=== PATIENT | female | born 1960 | race Caucasian/White ===

== ENCOUNTER 2021-03-26 03:07 | Emergency (ER) | payer SELFPAY ==
[2021-03-26 03:07] VITALS: RESP 18; TEMP 36.6; BMI 18.8
--- NOTE | 2021-03-26 03:39 | XRR_ITS ---
PROCEDURE INFORMATION: Exam: XR Right Elbow Exam date and time: 03/26/2021 3:39 AM Age: 61 years old Clinical indication: Injury or trauma; Fall; Blunt trauma (contusions or hematomas); Elbow; Right; Additional info: Fall injury TECHNIQUE: Imaging protocol: XR Right elbow. Views: 3 or more views. Total images: 3 COMPARISON: No relevant prior studies available. FINDINGS: Bones/joints: Large joint effusion. Minimal irregularity of the lateral aspect of the radial head felt to represent nondisplaced fracture. This is seen on AP view only. No additional fracture, subluxation, or dislocation detected. Soft tissues: Normal. XR/XR elbow RT min 3V* [id number] IMPRESSION: 1. Large joint effusion. 2. Minimal irregularity of the lateral aspect of the radial head felt to represent nondisplaced fracture. This is seen on AP view only. Radiation Dose CTDIVOL = (mGy): DLP = (mGy-cm)
[2021-03-26 03:57] VITALS: RESP 20; O2SAT 98
[2021-03-26] MEDS: oxyCODONE-APAP 5-325 mg Tablet 2 TAB PO (03:57)
[2021-03-26 04:11] VITALS: BP 141/82; PULSE 88; RESP 22; O2SAT 98
--- NOTE | 2021-03-26 05:28 | ED_ITS ---
HPI - Extremity Problem General: Chief complaint: Extremity Injury, Upper Stated complaint: fall, R arm pain Time Seen by Provider: 03/26/21 03:12 History of Present Illness: HPI Narrative: 61-year-old lady who fell a couple of days ago. She states that she does not see well in the dark, and was walking and fell from the ground level. She struck her right elbow. She has had pain and swelling since that time. Pain worsens with any movement. MD Complaint: extremity pain and extremity swelling Onset (ago): day(s) Pain Consistency: constant Location: right and upper extremity Quality: burning, aching and constant Radiation: none Relieving factors: immobilization Exacerbating factors: range of motion Associated symptoms: Deny chest pain, fever(s), rash or short of breath Review of Systems Const: Denies: fever(s) Card: Denies: chest pain Resp: Denies: dyspnea Skin/Breast: Denies: rash Physical Exam Const: COMMON NORMALS: patient oriented x3 and alert GENERAL APPEARANCE: cooperative Chest: COMMONS NORMALS: normal inspection of the chest Resp: COMMON NORMALS: normal respiratory effort, No use of accessory muscles and clear to auscultation bilaterally AUSCULTATION: clear to auscultation bilaterally Cardio: COMMON NORMALS: regular rate and regular rhythm RATE: regular rate RHYTHM: regular rhythm Extremity: NARRATIVE EXTREMITY EXAM: Exam of the right upper extremity reveals range of motion at the elbow limited by pain. There is swelling noted. There is tenderness, most significantly over the olecranon and radial head. Neuro: COMMON NORMALS: patient oriented x3 SENSORIUM/ORIENTATION: Yes alert Course Vital Signs: Vital signs: Vital Signs Temperature 98 F 03/26/21 03:07 Pulse Rate 88 03/26/21 04:11 Respiratory Rate 22 H 03/26/21 04:11 Blood Pressure 141/82 03/26/21 04:11 Pulse Oximetry 98 03/26/21 04:11 Discharge Plan Discharge Patient Disposition: Home Clinical Impression: Closed fracture of radial head Qualifiers: Encounter type: initial encounter Fracture alignment: nondisplaced Laterality: right Qualified Code(s): S52.124A - Nondisplaced fracture of head of right radius, initial encounter for closed fracture Condition: Stable Prescriptions: New hydrocodone-acetaminophen 5-325 mg tablet 1 tab PO Q8H PRN (Reason: pain) Qty: 12 RF: 0 Discharge Orders: Discharge ED (Routine); Ordered 03/26/21 Ordered By: Jovanni Arthur Referrals: Mihai Jason DO [Physician] - 4-7 days Discharge Diet: Usual diet Discharge Activity: Limit activity as instructed Patient Instructions: Elbow Fracture (ED), Opioid Safety Activity Restrictions/Additional Instructions: Call for an orthopedic clinic appointment on Saturday morning for that coming week. Sling your elbow until seen by orthopedics, but no longer than 1 week. Come out of the sling frequently for gentle range of motion of your elbow. Ice will help with pain. Use pain medication for severe pain. Coding Level of Care Code ED [employer] for Dea Choudhary
== END 2021-03-26 04:10 | disposition home or self-care (01) ==
PROVIDERS: Emergency Provider Emergency Medicine
DX: S52.124A Nondisplaced fracture of head of right radius, initial encounter for closed fracture (principal); W19.XXXA Unspecified fall, initial encounter
CPT/HCPCS: 73080; 99283

== ENCOUNTER 2021-04-04 16:05 | Emergency (ER) | payer SELFPAY ==
[2021-04-04 16:23] VITALS: BP 159/74; PULSE 112; RESP 18; TEMP 36.4; O2SAT 99; BMI 18.8
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
[2021-04-04 17:20] LABS: Add Urine Microscopic? NO; Charge for UA Resulting for Rev
[2021-04-04 17:40] LABS: Bilirubin Urine Neg (Negative); Blood Urine Neg (Negative); Glucose Urine UA Norm (Normal); Ketones Urine 2+ (Negative); Leukocyte Esterase Urine Negative (Negative); Nitrate Urine Negative (Negative); Protein Urine Neg (Negative); Specific Gravity, Urine 1.025 (1.005-1.030); Urine Appearance Clear (CLEAR); Urine Color Yellow (Yellow); Urobilinogen Urine Norm (Negative); pH Urine 5 (5-7)
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
[2021-04-04] MEDS: morphine 4 mg/mL SDV 1 mL IVP ×2 (19:55→23:14)
[2021-04-04] MEDS: ondansetron 2 mg/ML SDV 2 mL 4 MG IVP (19:55)
[2021-04-04 20:41] LABS: Basophils # 0.1 10^3/uL (0.0-0.1); Basophils % 0.6 %; Eosinophils % 0.1 %; Hematocrit 33.9 % (37.0-47.0); Hemoglobin 11.9 g/dL (11.5-15.3); Lymphocytes # 1.4 10^3/uL (0.8-4.8); Lymphocytes % 16.1 %; Mean Corpuscular HGB Conc 35.1 g/dL (30.0-36.0); Mean Corpuscular Hemoglobin 31.9 pg (28.0-34.0); Mean Corpuscular Volume 90.9 fl (81-99); Mean Platelet Volume 9.6 fL (7.4-10.4); Monocytes # 0.5 10^3/uL (0.2-0.9); Monocytes % 5.7 %; Neutrophils # 6.91 10^3/uL (1.8-7.7); Neutrophils % 77.1 %; Nucleated Red Blood Cells % 0 %; Platelet Count 217 10^3/cmm (130-400); Red Blood Count 3.73 10^6/uL (4.1-5.3); Red Cell Distribution Width 14.5 % (12.1-15.1)
[2021-04-04 21:02] LABS: Alanine Aminotransferase 31 U/L (0-33); Albumin Level 4.9 g/dL (3.5-5.2); Alkaline Phosphatase 68 IU/L (35-105); Anion Gap 29.8 (5-19); Aspartate Amino Transferase 59 U/L (0-32); Blood Urea Nitrogen 18 mg/dL (8-23); Calcium 9.1 mg/dL (8.5-10.5); Carbon Dioxide 17 mmol/L (22-29); Chloride 89 mmol/L (98-107); Globulin 3.7 g/dL (1.3-4.6); Glomerular Filtration Rate 84.8 mL/min (90-130); Glucose 111 mg/dL (65-115); Lipase 18 U/L (13-60); Osmolality Calculated 277 mOsm/kg (285-295); Potassium 3.8 mmol/L (3.5-5.1); Sodium 132 mmol/L (136-145); Total Bilirubin 0.5 mg/dL (0.15-1.2); Total Protein 8.6 g/dL (6.6-8.7)
[2021-04-04 21:03] LABS: Lactic Sepsis W/Reflex 3.1 mmol/L (0.5-2.2)
[2021-04-04] MEDS: iohexol 300 mg/mL 100 mL Btl IV (21:09)
[2021-04-04] MEDS: sodium chloride 0.9% 1,000 ML 999 ML IV ×2 (21:23)
[2021-04-04 22:22] LABS: Reflex Lactate Order REFLEX LACTIC ORDERD
[2021-04-04 23:14] VITALS: RESP 24
[2021-04-04 23:19] VITALS: PULSE 109; RESP 24; O2SAT 98
[2021-04-04 23:46] LABS: Lactate (Lactic Acid level) 2.5 mmol/L (0.5-2.2)
[2021-04-04 23:47] LABS: Anion Gap 19.9 (5-19); Blood Urea Nitrogen 15 mg/dL (8-23); Calcium 7.6 mg/dL (8.5-10.5); Carbon Dioxide 19 mmol/L (22-29); Chloride 101 mmol/L (98-107); Glucose 112 mg/dL (65-115); Osmolality Calculated 284 mOsm/kg (285-295); Potassium 3.9 mmol/L (3.5-5.1); Sodium 136 mmol/L (136-145)
[2021-04-05 00:08] VITALS: PULSE 82; RESP 18; O2SAT 98
--- NOTE | 2021-04-06 11:40 | DCPLANNER ---
dependency case manager had message to schedule a follow up appointment for patient with general surgery. dependency case manager emailed patients information to Suly at [facility] General Surgery / ENT clinic. Patients information will be printed and reviewed. Clinic will call patient with appointment information.
--- NOTE | 2021-04-18 16:10 | DCPLANNER ---
manager in training tried to call patient to confirm if they wanted to be seen in the area due to [place] in another state. manager in training was unable to reach patient at this time, and unable to leave a voicemail. General Surgery was unable to reach patient, a letter was sent to patient asking patient to call to schedule a follow up appointment if needed.
== END 2021-04-05 00:09 | disposition home or self-care (01) ==
PROVIDERS: Physician Assistant; Emergency Provider Emergency Medicine
DX: R10.84 Generalized abdominal pain (principal)
CPT/HCPCS: 36415; 74177; 80048; 80053; 81003; 83605; 83690; 85025; 96361; 96374; 96375; 96376; 99284; J2270; J2405; J7030; Q9967

== ENCOUNTER 2021-05-17 20:45 | Emergency (ER) | payer SELFPAY ==
[2021-05-17 20:46] VITALS: BP 150/103; PULSE 90; RESP 20; TEMP 36.6; O2SAT 100; BMI 17.2
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
--- NOTE | 2021-05-17 20:46 | XRR_ITS ---
PROCEDURE INFORMATION: Exam: XR Chest Exam date and time: 05/17/2021 8:46 PM Age: 61 years old Clinical indication: Pain; Angina pectoris; Additional info: Cp TECHNIQUE: Imaging protocol: XR of the chest. Views: 1 view. COMPARISON: CT abdomen pelvis w con* [id number] 04/04/2021 9:06 PM FINDINGS: Lungs: Unremarkable. No consolidation. Pleural spaces: Unremarkable. No pleural effusion. No pneumothorax. Heart/Mediastinum: Unremarkable. No cardiomegaly. Bones/joints: Unremarkable. XR/XR chest 1V portable [id number] IMPRESSION: No acute findings.
--- NOTE | 2021-05-17 20:49 | ECG_ITS ---
[facility] Test Date: 2021-05-17 Pat Name: Christianne Woodson Department: Room: Gender: Female Agronomy Manager: : 1960 Requested By: Sammy Lucas Order Number: [id number] MD: Rhianna Erwin M.D. Measurements Intervals [place] Rate: 83 P: 68 NH: 157 QRS: 52 QRSD: 81 T: 65 QT: 391 QTc: 460 Interpretive Statements SINUS RHYTHM No previous ECG available for comparison Electronically Signed On 05-18-2021 0:04:23 CERAMIC CAPACITOR PROCESSOR by Rhianna Erwin M.D. [id number]
--- NOTE | 2021-05-17 20:51 | ED_ITS ---
HPI - Abdominal Pain General: Chief Complaint: Abdominal Pain Stated Complaint: ABD SWELLING DISCOMFORT Time Seen by Provider: 05/17/21 20:45 Source: patient Mode of arrival: ambulatory Limitations: no limitations History of Present Illness: 61-year-old female with a history hepatitis C states she been having abdominal swelling and pain over the last 2 days states she also been having a sharp chest pain that radiates from her abdomen. States she does not have a primary care doctor here she does not know if she has had ascites before but states she has never had a paracentesis. States pain neymar oquendo is a 6 out of 10 denies any fever denies any vomiting denies any diarrhea she is resting comfortably. [facility] ED PFSH: Medical History (Updated 05/17/21 @ 23:07 by Sammy Lucas MD) Hepatitis C Family History (Updated 05/17/21 @ 20:53 by Sammy Lucas MD) Denies family history of CAD (coronary artery disease) Physical Exam Const: COMMON NORMALS: no acute distress, patient oriented x3 and healthy appearing HENMT: COMMON NORMALS: normocephalic and atraumatic HEAD & SCALP: normocephalic and atraumatic Eye: COMMON NORMALS: Equal, round and reactive pupils present and EOMs intact bilaterally PUPIL: Yes Equal, round and reactive pupils present Neck/C-Spine: COMMON NORMALS: full ROM and supple Chest: COMMONS NORMALS: normal inspection of the chest and normal palpation of entire chest wall Resp: COMMON NORMALS: normal respiratory effort, No retractions, No use of accessory muscles and clear to auscultation bilaterally AUSCULTATION: clear to auscultation bilaterally Cardio: COMMON NORMALS: regular rate, regular rhythm and No murmurs present (Cardio) RATE: regular rate RHYTHM: regular rhythm GI: COMMON NORMALS: Normal to inspection, nondistended, normoactive bowel sounds present, Soft to palpation, non-tender and no masses PALPATION: Yes Soft to palpation and Yes Tenderness to palpation present (GI) (diffuse) Extremity: COMMON NORMALS: normal to inspection and full ROM Neuro: COMMON NORMALS: patient oriented x3, moves all extremities and no focal motor deficits Psych: COMMON NORMALS: mental status grossly normal, Normal thought process present and cooperative THOUGHT PROCESS: Normal thought process present Skin: COMMON NORMALS: no rashes or lesions noted and no wounds GENERAL SKIN EXAM: no rashes or lesions noted Course Vital Signs: Vital signs: Vital Signs Temperature 97.8 F 05/17/21 20:46 Pulse Rate 82 05/17/21 22:13 Respiratory Rate 20 H 05/17/21 20:46 Blood Pressure 166/88 05/17/21 22:13 Pulse Oximetry 100 05/17/21 22:13 MDM - Abdominal Pain Medical Decision Making Patient presents here with abdominal pain likely from hepatitis C she well- appearing here blood works normal abdominal CT is normal EKG is troponins are normal as well she feels improved here she is stable for discharge regular follow-up with a PCP she is return if worsening. Lab Data : 05/17/21 20:31 05/17/21 20:31 Labs/Radiology: Radiology Impressions Abdomen/Pelvis CT 05/17/21 20:46 IMPRESSION: 1. Prominent nondilated loops of small bowel suggestive of an enteritis. 2. Diverticulosis without diverticulitis. 3. Emphysematous changes. 4. Left lower lobe atelectasis. 5. Surgical clips seen about the stomach. Chest X-Ray 05/17/21 20:46 IMPRESSION: No acute findings. Laboratory Results WBC 7.3 10^3/uL (4.0-10.0) 05/17/21 20:31 RBC 3.50 10^6/uL (4.1-5.3) L 05/17/21 20:31 Hgb 11.3 g/dL (11.5-15.3) L 05/17/21 20:31 Hct 34.5 % (37.0-47.0) L 05/17/21 20:31 MCV 98.6 fl (81-99) 05/17/21 20:31 MCH 32.3 pg (28.0-34.0) 05/17/21 20:31 MCHC 32.8 g/dL (30.0-36.0) 05/17/21 20:31 RDW 13.3 % (12.1-15.1) 05/17/21 20:31 Plt Count 239 10^3/cmm (130-400) 05/17/21 20:31 MPV 9.4 fL (7.4-10.4) 05/17/21 20: Neut % (Auto) 56.7 % 05/17/21 20:31 Lymph % (Auto) 27.8 % 05/17/21 20: [place] % (Auto) 9.9 % 05/17/21 20: Eos % (Auto) 4.3 % 05/17/21 20: Baso % (Auto) 1.0 % 05/17/21 20: Neut # (Auto) 4.14 10^3/uL (1.8-7.7) 05/17/21: Lymph # (Auto) 2.0 10^3/uL (0.8-4.8) 05/17/21: [place] # (Auto) 0.7 10^3/uL (0.2-0.9) 05/17/21: Eos # (Auto) 0.3 10^3/uL (0.0-0.8) 05/17/21: Baso # (Auto) 0.1 10^3/uL (0.0-0.1) 05/17/21 20: Nucleated RBC % (auto) 0 % 05/17/21: Nucleated RBCs # 0.0 /100WBC 05/17/21 20: Sodium 130 mmol/L (136-145) L 05/17/21 20: Potassium 4.3 mmol/L (3.5-5.1) 05/17/21 20: Chloride 96 mmol/L (98-107) L 05/17/21 20: Carbon Dioxide 23 mmol/L (22-29) 05/17/21 20: Anion Gap 15.3 (5-19) 05/17/21 20: BUN 9 mg/dL (8-23) 05/17/21 20: Creatinine 0.6 mg/dL (0.5-0.9) 05/17/21 20: GFR Calculation 101.3 mL/min (90-130) 05/17/21: Glucose 84 mg/dL (65-115) 05/17/21 20: Calculated Osmolality 268 mOsm/kg (285-295) L 05/17/21: Calcium 8.9 mg/dL (8.5-10.5) 05/17/21: Total Bilirubin 0.2 mg/dL (0.15-1.2) 01/26/22 20:31 AST 34 U/L (0-32) H 05/17/21 20:31 ALT 34 U/L (0-33) H 05/17/21 20:31 Alkaline Phosphatase 71 IU/L (35-105) 05/17/21 20:31 Troponin T Baseline 13 ng/L (0-10) H 05/17/21 20:31 Troponin T 120 Minute 14.01 ng/L (0-10) H 05/17/21 22:29 Delta Troponin T 1.01 ABS# (0-10) 05/17/21 22:29 Total Protein 7.0 g/dL (6.6-8.7) 05/17/21 20:31 Albumin 4.4 g/dL (3.5-5.2) 05/17/21 20:31 Globulin 2.6 g/dL (1.3-4.6) 05/17/21 20:31 Lipase 38 U/L (13-60) 05/17/21 20:[address] Abd/Pel: Radiologist's impression: IMPRESSION: 1. Prominent nondilated loops of small bowel suggestive of an enteritis. 2. Diverticulosis without diverticulitis. 3. Emphysematous changes. 4. Left lower lobe atelectasis. 5. Surgical clips seen about the stomach. Discharge Plan Discharge Patient Disposition: Home Clinical Impression: Abdominal pain, Chest pain Condition: Stable Prescriptions: No Action hydrocodone-acetaminophen 5-325 mg tablet 1 tab PO Q8H PRN (Reason: pain) Qty: 12 0RF Discharge Orders: Discharge ED (Routine); Ordered 05/17/21 Ordered By: Sammy Lucas Discharge Diet: Advance as tolerated Discharge Activity: Resume usual activity Patient Instructions: Abdominal Pain (ED) Coding Level of Care Code ED Dean Of Admissions for Vikramg Fwd Exam Comprehensive
[2021-05-17 21:00] LABS: Basophils # 0.1 10^3/uL (0.0-0.1); Eosinophils # 0.3 10^3/uL (0.0-0.8); Eosinophils % 4.3 %; Hematocrit 34.5 % (37.0-47.0); Hemoglobin 11.3 g/dL (11.5-15.3); Lymphocytes % 27.8 %; Mean Corpuscular HGB Conc 32.8 g/dL (30.0-36.0); Mean Corpuscular Hemoglobin 32.3 pg (28.0-34.0); Mean Corpuscular Volume 98.6 fl (81-99); Mean Platelet Volume 9.4 fL (7.4-10.4); Monocytes # 0.7 10^3/uL (0.2-0.9); Monocytes % 9.9 %; Neutrophils # 4.14 10^3/uL (1.8-7.7); Neutrophils % 56.7 %; Nucleated Red Blood Cells % 0 %; Platelet Count 239 10^3/cmm (130-400); Red Cell Distribution Width 13.3 % (12.1-15.1); White Blood Count 7.3 10^3/uL (4.0-10.0)
[2021-05-17] MEDS: morphine 4 mg/mL SDV 1 mL IVP (21:06)
[2021-05-17] MEDS: ondansetron 2 mg/ML SDV 2 mL 4 MG IVP (21:06)
[2021-05-17] MEDS: iohexol 300 mg/mL 100 mL Btl IV (21:18)
[2021-05-17 21:25] LABS: Troponin(5th) Baseline 13 ng/L (0-10)
[2021-05-17 21:29] LABS: Alanine Aminotransferase 34 U/L (0-33); Albumin Level 4.4 g/dL (3.5-5.2); Alkaline Phosphatase 71 IU/L (35-105); Anion Gap 15.3 (5-19); Aspartate Amino Transferase 34 U/L (0-32); Blood Urea Nitrogen 9 mg/dL (8-23); Calcium 8.9 mg/dL (8.5-10.5); Carbon Dioxide 23 mmol/L (22-29); Chloride 96 mmol/L (98-107); Globulin 2.6 g/dL (1.3-4.6); Glomerular Filtration Rate 101.3 mL/min (90-130); Glucose 84 mg/dL (65-115); Lipase 38 U/L (13-60); Osmolality Calculated 268 mOsm/kg (285-295); Potassium 4.3 mmol/L (3.5-5.1); Sodium 130 mmol/L (136-145); Total Bilirubin 0.2 mg/dL (0.15-1.2)
[2021-05-17 21:58] VITALS: BP 150/79; PULSE 86; O2SAT 100
[2021-05-17 22:13] VITALS: BP 166/88; PULSE 82; O2SAT 100
--- NOTE | 2021-05-17 22:49 | ECG_ITS ---
[facility] Test Date: 2021-05-17 Pat Name: Christianne Woodson Department: Room: Gender: Female Senior Corporate Strategy Manager: : 1960 Requested By: Sammy Lucas Order Number: [id number] Oh MD: Rhianna Erwin M.D. Measurements Intervals [place] Rate: 83 P: 138 VT: 160 QRS: 72 QRSD: 81 T: 111 QT: 388 QTc: 457 Interpretive Statements ECTOPIC ATRIAL RHYTHM POSSIBLE LEFT ATRIAL ENLARGEMENT [-0.1mV P-WAVE IN V1/V2] LOW QRS VOLTAGE IN EXTREMITY LEADS [QRS DEFLECTION < 0.5 mV IN LIMB LEADS] SEPTAL MYOCARDIAL INFARCTION , OF INDETERMINATE AGE [40+ ms Q WAVE IN V1/V2] Compared to ECG 05/17/2021 21:13:15 Ectopic atrial rhythm now present Low QRS voltage now present Myocardial infarct finding now present Sinus rhythm no longer present Electronically Signed On 05-18-2021 0:15:04 SEWING MACHINE OPERATOR SEMIAUTOMATIC by Rhianna Erwin M.D. [email or web address] anderson [email or web address].[employer]/store/NU/[id number] f
[2021-05-17 22:59] LABS: Troponin 5 2HR 14.01 ng/L (0-10)
[2021-05-17 23:00] LABS: Troponin 5 2HR Delta 1.01 ABS# (0-10)
[2021-05-17 23:19] VITALS: BP 129/89; PULSE 86; RESP 16; O2SAT 99
--- NOTE | 2021-05-18 10:06 | DCPLANNER ---
manager cost had message to speak with patient about getting established with a primary care physician. manager cost called phone number [phone], phone call can not be completed. manager cost unable to speak with patient or leave a voicemail for patient.
== END 2021-05-17 23:20 | disposition home or self-care (01) ==
PROVIDERS: Emergency Provider Emergency Medicine
DX: R10.9 Unspecified abdominal pain (principal); B19.20 Unspecified viral hepatitis C without hepatic coma
CPT/HCPCS: 71045; 74177; 80053; 83690; 84484; 85025; 93005; 96374; 96375; 99284; J2270; J2405; Q9967

== ENCOUNTER 2021-05-30 14:27 | Emergency (ER) | payer SELFPAY ==
--- NOTE | 2021-05-30 15:10 | ECG_ITS ---
[facility] Test Date: 2021-05-30 Pat Name: Christianne Woodson Department: Room: Gender: Female Machine Set Up Operator: : 1960 Requested By: Dave Murray Order Number: [id number] Oh MD: German Fraser M.D. Measurements Intervals [place] Rate: 97 P: 58 NC: 158 QRS: 14 QRSD: 82 T: 56 QT: 377 QTc: 481 Interpretive Statements SINUS RHYTHM LOW QRS VOLTAGE IN EXTREMITY LEADS [QRS DEFLECTION < 0.5 mV IN LIMB LEADS] Compared to ECG 05/17/2021 22:20:08 Ectopic atrial rhythm no longer present Myocardial infarct finding no longer present Electronically Signed On 05-30-2021 17:04:46 IT APPLICATION ADMINISTRATOR by German Fraser M.D. [email or web address] medical surgical hospitalSparksfly Technologiesselect medical specialty hospital - [facility].[employer]/store/OM/[id number]/[id number]
--- NOTE | 2021-05-30 15:10 | XR_ITS ---
WS: [id number] XR chest 1V portable [id number] REASON FOR EXAM: chest pain FINDINGS: Chest is unchanged compared to previous examination of 05/17/2021. Moderate tortuosity and ectasia of the thoracic aorta without aneurysmal dilatation. No significant cardiomegaly. Calcified granulomatous disease bilaterally. No acute pulmonary parenchymal or pleural abnormality. Degenerative changes in the mid and lower thoracic spine. XR/XR chest 1V portable [id number] IMPRESSION: No acute chest abnormality.
--- NOTE | 2021-05-30 15:33 | W.ED.CHESTPA ---
HPI - Chest Pain General: Chief Complaint: Chest Pain Stated Complaint: CHEST PAIN, SOB, R SIDE CHEST PAIN Time Seen by Provider: 05/30/21 15:10 History of Present Illness: 62-year-old female presents emergency room via EMS complaining of chest pain along with shortness of breath mild diaphoresis. Chest pain began yesterday is actually moved more to the right side. She has not noticed anything that exacerbates or relieves. She not previously had a [place] stents or any kind of intervention. She does have a history of hep C. She was give aspirin and sublingual nitro in route.she did get some relief from the sublingual nitro. The emergency room at this time is beyond capacity and I have asked to the EMS crew to apply topical nitro 1 inch to her chest out of their supplies. Initial EKG does not show any acute ST elevation MD complaint: chest pain Onset (ago): day(s) (1) Timing of current episode: episodic Prior episodes: Yes Onset: during rest Pain location: right chest Pain radiation: none Severity: mild Quality: aching Relieving factors: nothing Exacerbating factors: inspiration and palpation Associated symptoms: Deny abdominal pain, diaphoresis, dyspnea, fever(s), leg edema, nausea, palpitations, sense of impending doom, syncope or vomiting Treatment prior to arrival: aspirin, nitroglycerin and oxygen Review of Systems Const: Denies: fever(s) or diaphoresis ENMT: Denies: throat pain, ear or mastoid pain, nasal discharge or nasal congestion Card: Denies: palpitations or syncope Resp: Denies: dyspnea GI: Denies: abdominal pain, nausea or vomiting : Denies: flank pain, difficulty voiding, dysuria, urinary frequency or urinary urgency Skin/Breast: Denies: rash or pruritus [facility] ED PFSH: Medical History Hepatitis C Family History Denies family history of CAD (coronary artery disease) Physical Exam Const: COMMON NORMALS: no acute distress GENERAL APPEARANCE: cooperative and comfortable ORIENTATION/CONSCIOUSNESS: Yes awake, Yes oriented to person, Yes oriented to place and Yes oriented to time HENMT: COMMON NORMALS: normocephalic, atraumatic and hearing grossly normal bilaterally HEAD & SCALP: normocephalic and atraumatic Neck/C-Spine: COMMON NORMALS: no JVD Resp: COMMON NORMALS: normal respiratory effort, No retractions, No use of accessory muscles and clear to auscultation bilaterally AUSCULTATION: clear to auscultation bilaterally Cardio: COMMON NORMALS: no JVD, regular rate, regular rhythm and No murmurs present (Cardio) RATE: regular rate RHYTHM: regular rhythm GI: COMMON NORMALS: Soft to palpation and No hepatosplenomegaly present AUSCULTATION: Yes normoactive bowel sounds PALPATION: Yes Soft to palpation, No Tenderness to palpation present (GI), No Guarding due to palpation present (GI) and Yes No hepatosplenomegaly present Extremity: COMMON NORMALS: normal to inspection, capillary refill normal, no clubbing, cyanosis or edema, no calf tenderness and no pedal edema Neuro: SENSORIUM/ORIENTATION: Yes oriented to person, Yes oriented to place and Yes oriented to time Skin: COMMON NORMALS: no rashes or lesions noted GENERAL SKIN EXAM: no rashes or lesions noted Course Vital Signs: Vital signs: Vital Signs Temperature 97.8 F 05/30/21 18:59 Pulse Rate 99 05/30/21 18:59 Respiratory Rate 16 05/30/21 18:59 Blood Pressure 122/68 05/30/21 18:59 Pulse Oximetry 96 05/30/21 18:59 MDM - Chest Pain Medical Decision Making EKG shows normal sinus rhythm troponins unremarkable pain is reproducible with inspiration and palpation. Will discharge patient home started on aspirin daily she is pain-free at this time. Return if she has any further problems avoid any exertional activities. Medical Records I reviewed the patient's medical records. Lab Data I reviewed the patient's lab results. : 05/30/21 15:55 05/30/21 15:55 Radiology Impressions Chest X-Ray 05/30/21 15:10 IMPRESSION: No acute chest abnormality. Laboratory Results WBC 9.1 10^3/uL (4.0-10.0) 05/30/21 15:55 RBC 3.61 10^6/uL (4.1-5.3) L 05/30/21 15:55 Hgb 11.7 g/dL (11.5-15.3) 05/30/21 15:55 Hct 34.9 % (37.0-47.0) L 05/30/21 15:55 MCV 96.7 fl (81-99) 05/30/21 15:55 MCH 32.4 pg (28.0-34.0) 05/30/21 15:55 MCHC 33.5 g/dL (30.0-36.0) 05/30/21 15:55 RDW 12.9 % (12.1-15.1) 05/30/21 15:55 Plt Count 238 10^3/cmm (130-400) 05/30/21 15:55 MPV 9.5 fL (7.4-10.4) 05/30/21 15:55 Neut % (Auto) 67.2 % 05/30/21 15:55 Lymph % (Auto) 19.5 % 05/30/21 15:55 [place] % (Auto) 8.7 % 05/30/21 15:55 Eos % (Auto) 3.2 % 05/30/21 15:55 Baso % (Auto) 1.0 % 05/30/21 15:55 Neut # (Auto) 6.09 10^3/uL (1.8-7.7) 05/30/21 15:55 Lymph # (Auto) 1.8 10^3/uL (0.8-4.8) 05/30/21 15:55 [place] # (Auto) 0.8 10^3/uL (0.2-0.9) 05/30/21 15:55 Eos # (Auto) 0.3 10^3/uL (0.0-0.8) 05/30/21 15:55 Baso # (Auto) 0.1 10^3/uL (0.0-0.1) 05/30/21 15:55 Nucleated RBC % (auto) 0 % 05/30/21 15:55 Nucleated RBCs # 0.0 /100WBC 05/30/21 15:55 Sodium 132 mmol/L (136-145) L 05/30/21 15:55 Potassium 4.9 mmol/L (3.5-5.1) 05/30/21 15:55 Chloride 99 mmol/L (98-107) 05/30/21 15:55 Carbon Dioxide 22 mmol/L (22-29) 05/30/21 15:55 Anion Gap 15.9 (5-19) 05/30/21 15:55 BUN 16 mg/dL (8-23) 05/30/21 15:55 Creatinine 0.6 mg/dL (0.5-0.9) 05/30/21 15:55 GFR Calculation 101.3 mL/min (90-130) 05/30/21 15:55 Glucose 91 mg/dL (65-115) 05/30/21 15:55 Calculated Osmolality 275 mOsm/kg (285-295) L 05/30/21 15:55 Calcium 9.8 mg/dL (8.5-10.5) 05/30/21 15:55 Total Bilirubin 0.2 mg/dL (0.15-1.2) 05/30/21 15:55 AST 37 U/L (0-32) H 05/30/21 15:55 ALT 33 U/L (0-33) 05/30/21 15:55 Alkaline Phosphatase 70 IU/L (35-105) 05/30/21 15:55 Troponin T Baseline 15 ng/L (0-10) H 05/30/21 15:55 Troponin T 120 Minute 12.57 ng/L (0-10) H 05/30/21 17:31 Delta Troponin T -2.43 ABS# (0-10) L 05/30/21 17:31 Total Protein 7.6 g/dL (6.6-8.7) 05/30/21 15:55 Albumin 4.6 g/dL (3.5-5.2) 05/30/21 15:55 Globulin 3.0 g/dL (1.3-4.6) 05/30/21 15:55 Discharge Plan Discharge Patient Disposition: Home Clinical Impression: Atypical chest pain Condition: Stable Prescriptions: New aspirin 81 mg tablet,delayed release (DR/EC) 81 mg PO DAILY Qty: 30 0RF No Action hydrocodone-acetaminophen 5-325 mg tablet 1 tab PO Q8H PRN (Reason: pain) Qty: 12 0RF Discharge Orders: Discharge ED (Routine); Ordered 05/30/21 Ordered By: Dave Farias Discharge Activity: Limit activity as instructed Patient Instructions: Opioid Safety Activity Restrictions/Additional Instructions: No exertional activity. Case management will call to make arrangements for a Lexiscan sestamibi stress test. Take aspirin 81 mg daily until you follow-up after the stress test Coding Level of Care Code ED Gta for Dea Choudhary
[2021-05-30 15:52] VITALS: BP 130/80; PULSE 102; RESP 18; TEMP 36.8; O2SAT 95; BMI 19.5
[2021-05-30 16:04] VITALS: BP 125/84; PULSE 101; RESP 19; TEMP 36.5; O2SAT 97
[2021-05-30 16:10] LABS: Basophils # 0.1 10^3/uL (0.0-0.1); Eosinophils # 0.3 10^3/uL (0.0-0.8); Eosinophils % 3.2 %; Hematocrit 34.9 % (37.0-47.0); Hemoglobin 11.7 g/dL (11.5-15.3); Lymphocytes # 1.8 10^3/uL (0.8-4.8); Lymphocytes % 19.5 %; Mean Corpuscular HGB Conc 33.5 g/dL (30.0-36.0); Mean Corpuscular Hemoglobin 32.4 pg (28.0-34.0); Mean Corpuscular Volume 96.7 fl (81-99); Mean Platelet Volume 9.5 fL (7.4-10.4); Monocytes # 0.8 10^3/uL (0.2-0.9); Monocytes % 8.7 %; Neutrophils # 6.09 10^3/uL (1.8-7.7); Neutrophils % 67.2 %; Nucleated Red Blood Cells % 0 %; Platelet Count 238 10^3/cmm (130-400); Red Blood Count 3.61 10^6/uL (4.1-5.3); Red Cell Distribution Width 12.9 % (12.1-15.1); White Blood Count 9.1 10^3/uL (4.0-10.0)
[2021-05-30] MEDS: aspirin 81 mg Chew Tablet 324 MG PO (16:39)
[2021-05-30 16:56] LABS: Alanine Aminotransferase 33 U/L (0-33); Albumin Level 4.6 g/dL (3.5-5.2); Alkaline Phosphatase 70 IU/L (35-105); Anion Gap 15.9 (5-19); Aspartate Amino Transferase 37 U/L (0-32); Blood Urea Nitrogen 16 mg/dL (8-23); Calcium 9.8 mg/dL (8.5-10.5); Carbon Dioxide 22 mmol/L (22-29); Chloride 99 mmol/L (98-107); Glomerular Filtration Rate 101.3 mL/min (90-130); Glucose 91 mg/dL (65-115); Osmolality Calculated 275 mOsm/kg (285-295); Potassium 4.9 mmol/L (3.5-5.1); Sodium 132 mmol/L (136-145); Total Bilirubin 0.2 mg/dL (0.15-1.2); Total Protein 7.6 g/dL (6.6-8.7)
--- NOTE | 2021-05-30 17:10 | ECG_ITS ---
[facility] Test Date: 2021-05-30 Pat Name: Christianne Woodson Department: Room: Gender: Female Founder President And Ceo: : 1960 Requested By: Dave Murray Order Number: [id number] MD: German Fraser M.D. Measurements Intervals [place] Rate: 94 P: 59 IN: 161 QRS: 9 QRSD: 77 T: 57 QT: 357 QTc: 448 Interpretive Statements SINUS RHYTHM Compared to ECG 05/30/2021 16:13:13 No significant changes Electronically Signed On 05-30-2021 20:54:48 PAPER TUBE GRADER by German Fraser M.D. [email or web address] Dajun Technologieswhitfield medical surgical hospitalArmaGen Technologiesuniversity hospitals elyria medical centerPiqniq/store/OM/[id number]
[2021-05-30] MEDS: morphine 4 mg/mL SDV 1 mL IVP (17:13)
[2021-05-30] MEDS: ondansetron 2 mg/ML SDV 2 mL 4 MG IVP (17:14)
[2021-05-30 18:35] LABS: Troponin 5 2HR 12.57 ng/L (0-10)
[2021-05-30 18:45] LABS: Troponin(5th) Baseline 15 ng/L (0-10)
[2021-05-30 18:53] LABS: Troponin 5 2HR Delta -2.43 ABS# (0-10)
[2021-05-30 18:59] VITALS: BP 122/68; PULSE 99; RESP 16; TEMP 36.6; O2SAT 96
--- NOTE | 2021-06-06 11:36 | DCPLANNER ---
garde manager had message to schedule an outpatient stress test for patient. There was not a primary care physician listed on patients chart. garde manager called to speak with patient about getting a primary care at [phone], was just a busy signal, unable to speak with patient and unable to leave a voicemail for patient. garde manager can not send order to centralized scheduling due to no primary care, to send the results to.
== END 2021-05-30 19:10 | disposition home or self-care (01) ==
PROVIDERS: Emergency Provider Family Medicine
DX: R07.89 Other chest pain (principal); Z86.19 Personal history of other infectious and parasitic diseases
CPT/HCPCS: 71045; 80053; 84484; 85025; 93005; 96374; 99283; J2270; J2405

== ENCOUNTER 2021-06-24 18:57 | Inpatient (IN) | payer SELFPAY ==
[2021-06-24 19:01] VITALS: BP 173/95; PULSE 127; RESP 22; O2SAT 96; BMI 18.8
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
--- NOTE | 2021-06-24 19:09 | ECG_ITS ---
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 Measurements Intervals [place] Rate: 110 P: 66 ID: [id number] QRS: 48 QRSD: 82 T: 59 QT: 340 QTc: 462 Interpretive Statements SINUS TACHYCARDIA ABNORMAL RHYTHM ECG Compared to ECG 05/30/2021 18:23:06 Sinus rhythm no longer present Electronically Signed On 06-25-2021 12:07:49 BUSINESS MAIL ENTRY CLERK by Mirna Hale M.D. [id number]
[2021-06-24 19:54] LABS: Basophils # 0.1 10^3/uL (0.0-0.1); Eosinophils # 0.1 10^3/uL (0.0-0.8); Eosinophils % 0.7 %; Hematocrit 33.3 % (37.0-47.0); Hemoglobin 11.3 g/dL (11.5-15.3); Lymphocytes # 1.9 10^3/uL (0.8-4.8); Lymphocytes % 18.9 %; Mean Corpuscular HGB Conc 33.9 g/dL (30.0-36.0); Mean Corpuscular Hemoglobin 31.7 pg (28.0-34.0); Mean Corpuscular Volume 93.3 fl (81-99); Mean Platelet Volume 9.5 fL (7.4-10.4); Monocytes % 10.2 %; Neutrophils # 7.01 10^3/uL (1.8-7.7); Neutrophils % 68.8 %; Nucleated Red Blood Cells % 0 %; Platelet Count 266 10^3/cmm (130-400); Red Blood Count 3.57 10^6/uL (4.1-5.3); Red Cell Distribution Width 12.5 % (12.1-15.1); White Blood Count 10.2 10^3/uL (4.0-10.0)
[2021-06-24 19:56] LABS: Add Urine Microscopic? YES; Bilirubin Urine Neg (Negative); Blood Urine Trace (Negative); Glucose Urine UA Norm (Normal); Ketones Urine 1+ (Negative); Leukocyte Esterase Urine 1+ (Negative); Nitrate Urine Negative (Negative); Protein Urine Neg (Negative); Specific Gravity, Urine 1.005 (1.005-1.030); Urine Appearance Clear (CLEAR); Urine Color Straw (Yellow); Urobilinogen Urine Norm (Negative); pH Urine 5 (5-7)
[2021-06-24 20:04] LABS: Bacteria Urine 1+ /hpf; RBC Urine 0-4 /hpf (0-2); Squamous Epithelial Cell Urine 0-4 /hpf (0-5); WBC Urine 25-40 /hpf (0-5)
[2021-06-24 20:05] LABS: Add Urine Culture? Yes
[2021-06-24 20:06] LABS: Amphetamines Screen Urine Negative (Negative); Barbiturates Screen Urine Negative (Negative); Benzodiazepines Screen Urine Negative (Negative); Cocaine Screen Urine Negative (Negative); Opiate Screen Urine Negative (Negative); PCP Screen Urine Negative (Negative); THC Screen Urine Negative (Negative)
[2021-06-24 20:25] LABS: Acetaminophen 7.7 ug/mL (10-30); Alanine Aminotransferase 35 U/L (0-33); Albumin Level 4.5 g/dL (3.5-5.2); Alcohol Level 19 mg/dL (0-10); Alkaline Phosphatase 80 IU/L (35-105); Anion Gap 25.6 (5-19); Aspartate Amino Transferase 50 U/L (0-32); Blood Urea Nitrogen 8 mg/dL (8-23); Calcium 9.6 mg/dL (8.5-10.5); Carbon Dioxide 18 mmol/L (22-29); Chloride 87 mmol/L (98-107); Globulin 3.8 g/dL (1.3-4.6); Glucose 125 mg/dL (65-115); Osmolality Calculated 264 mOsm/kg (285-295); Potassium 3.6 mmol/L (3.5-5.1); Salicylate 6.8 mg/dL (3-10); Sodium 127 mmol/L (136-145); Thyroid Stimulating Hormone 1.09 uIU/mL (0.27-4.20); Total Bilirubin 0.3 mg/dL (0.15-1.2); Total Protein 8.3 g/dL (6.6-8.7)
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
[2021-06-24] MEDS: sodium chloride 0.9% 1,000 ML 999 ML IV (21:00)
[2021-06-24] MEDS: iohexol 300 mg/mL 100 mL Btl IV (22:16)
[2021-06-24] MEDS: acetaminophen 500 mg Tablet 1000 MG PO (22:30)
[2021-06-24] MEDS: cefTRIAXone 1,000 MG in sodium chloride 0.9% (plus) 50 ML 100 MG IV (22:31)
[2021-06-24 22:39] VITALS: BP 156/94; PULSE 95; RESP 16; TEMP 36.7; O2SAT 98
[2021-06-24] MEDS: LORazepam 2 mg/mL INJ 1 mL 1 MG IVP (22:46)
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
[2021-06-25] MEDS: trazodone 50 mg Tablet PO ×2 (01:26→20:12)
[2021-06-25 02:13] VITALS: BMI 19.6
[2021-06-25 02:14] VITALS: BP 158/83; PULSE 112; RESP 22; TEMP 36.4; O2SAT 97
[2021-06-25 06:37] VITALS: BP 101/66; PULSE 94; RESP 17; TEMP 36.7; O2SAT 96
[2021-06-25] MEDS: hyDROXYzine 25 mg Capsule 50 MG PO (08:49)
[2021-06-25] MEDS: acetaminophen 325 mg Tablet 650 MG PO ×2 (08:49→23:51)
--- NOTE | 2021-06-25 08:50 | PC.NURSE ---
Addendum entered by Caron Rogel LPN 06/25/21 11:47: prn med somewhat effective, pt cont to be somatic in complaints, c/o chest pain related to heartburn also c/o migraine, pt has already been given prn Tylenol for pain, assured she would see physician soon to clarify medications. Original Note: PRN VISTARIL 50 MG GIVEN PO PER PT C/O ANXIETY. PT TEARFUL, ANXIOUS TO SEE PHYSICIAN THIS MORNING.
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
[2021-06-25] MEDS: cephALEXin 500 mg Capsule PO ×3 (11:27→23:35)
[2021-06-25] MEDS: nicotine 21 mg Patch 1 PATCH TRANSDERMA (12:38)
[2021-06-25 14:00] VITALS: BP 135/68; PULSE 108; RESP 17; TEMP 36.8; O2SAT 98
[2021-06-25] MEDS: buPROPion XL (24 HR) 150 mg Tablet PO (14:24)
[2021-06-25] MEDS: ibuprofen 800 mg tablet PO (14:45)
[2021-06-25] MEDS: psyllium powder Pkt 1 PACKET PO (15:47)
[2021-06-25] MEDS: calcium carbonate 500 mg Chew Tablet PO (18:38)
--- NOTE | 2021-06-25 18:39 | PC.NURSE ---
PRN TUMS 500 MG CHEWABLE TAB GIVEN PO PER PT C/O INDIGESTION/HEARTBURN.
[2021-06-25] MEDS: nicotine 2 mg Gum BUCCAL (20:33)
--- NOTE | 2021-06-25 23:50 | PC.NURSE ---
Patient cooperative, with rambling speech, tearful at times. Talked about lung CA and colon cancer, and describes medicinal plants she uses at home and believes she pooped out a tumor previously and that medicinal plants cured her cancer. C/O pain in lungs from self described COPD and lung cancer. Patient accepted trazodone for sleep.
[2021-06-26 00:48] VITALS: BP 141/93; PULSE 114; RESP 20; TEMP 36.9; O2SAT 96
[2021-06-26] MEDS: ibuprofen 800 mg tablet PO ×3 (02:16→21:57)
[2021-06-26] MEDS: cephALEXin 500 mg Capsule PO ×4 (05:53→20:53)
[2021-06-26 06:00] VITALS: BP 101/63; PULSE 85; RESP 16; TEMP 36.8; O2SAT 99
[2021-06-26] MEDS: acetaminophen 325 mg Tablet 650 MG PO ×2 (07:49→14:59)
--- NOTE | 2021-06-26 08:07 | PC.NURSE ---
Am assessment Patient up to desk with am assessment. She is alert and oriented in all aspects. She denies SI, HI or hallucinations. Hr regular with ppp x 2, no edema noted. Lungs clear with breathing even and non labored. Bowel sounds active in all quads. Denies pain with urination. Patient does c/o headache today that is 6/10, tylenol given for pain. Skin is warm and dry.
[2021-06-26] MEDS: buPROPion XL (24 HR) 150 mg Tablet PO (08:17)
[2021-06-26] MEDS: psyllium powder Pkt 1 PACKET PO (08:18)
[2021-06-26] MEDS: calcium carbonate 500 mg Chew Tablet PO ×2 (08:18→12:02)
[2021-06-26] MEDS: nicotine 21 mg Patch 1 PATCH TRANSDERMA (08:39)
[2021-06-26] MEDS: hyDROXYzine 25 mg Capsule 50 MG PO (10:35)
--- NOTE | 2021-06-26 10:36 | PC.NURSE ---
Addendum entered by Stephanie Vieira RN 06/26/21 11:59: Vistaril Visaril effective. Patient states she feels less anxious. She is noted to be calmer and not pacing as much as previously noted. Original Note: Prn note Patient c/o feeling very anxious. Vistaril 50mg given for anxiety.
--- NOTE | 2021-06-26 12:02 | PC.NURSE ---
prn Tums 500 mg given po per pt c/o heartburn
[2021-06-26 14:00] VITALS: BP 144/89; PULSE 109; RESP 22; TEMP 36.6; O2SAT 97
[2021-06-26] MEDS: diphenhydrAMINE 50 mg/mL SDV 1mL IM (16:24)
--- NOTE | 2021-06-26 16:28 | PC.NURSE ---
Addendum entered by Stephanie Vieira RN 06/26/21 18:27: Benadryl Patient reports she feels better, rash on face improved. Benadryl effective Original Note: PRN NOTE Patient continues to c/o feeling ill, HR 109 bp 144/89 R 24, t 97.8. Patient states she is developing a rash on her face, she is noted to have redness to left side of face. Spoke with physician and gave Benadyl Im to right deltoid.
--- NOTE | 2021-06-26 17:15 | W.PM.NPUPNS ---
Subjective NPU Subjective: Interval history: Patient presents today continuing to be quite somatically preoccupied. She was sent month. afternoon suggesting that what ever we were giving her was causing her a allergic reaction. We did give her Benadryl and she did calm down but later she identified that she normally takes 100 mg of Benadryl every night to help with sleep and that she also takes a significant amount of Excedrin daily. Made a long conversation about her resistance to medications for valid reason but her exceptions of medications that would normally be advised in the doses she takes them because she thinks it works or is okay. Otherwise she has very idiosyncratic herbal remedies including one that she believes counteracts the fact that she smokes 2 packs a day of cigarettes. Mental Status Exam MSE Comments: This is a slender, older white female looking older than her stated age, in hospital scrubs with limited grooming and eye contact. No abnormal movements except for psychomotor agitation. Cooperative with exam in mild distress. Speech was increased rate and slightly decreased volume. Patient mood described as depressed, affect congruent. Thought process, organized at times. Thought content: patient denies any suicidal or homicidal ideations, no delusions reported or noted but some concern for some somatic delusions exists and denies any auditory or visual hallucinations. Attention and concentration are intact and memory appears questionable at times but none were formally tested. She is alert and oriented three times. Insight and judgment appear limited. Impulse control is limited. Vitals/I&O/Wt Last Vital Signs Temp 97.6 F 06/26/21 22:00 Pulse 94 06/26/21 22:00 Resp 16 06/26/21 22:00 BP 154/93 06/26/21 22:00 Pulse Ox 100 06/26/21 22:00 Data NPU : 06/24/21 19:44 06/24/21 19:44 Micro: Microbiology 06/24/21 19:34 Urine Culture - Preliminary Urine,Clean Catch Microbiology 06/24/21 19:34 Urine,Clean Catch Urine Culture - Preliminary A&P Assessment and plan (1) Bereavement: Status: Acute (2) PTSD (post-traumatic stress disorder): Status: Acute (3) Suicidal ideation: Status: Acute (4) Depression: Status: Acute (5) Hepatitis C: Status: Acute Plan This is a 61 year old white female with a long history of trauma, question of PTSD, with recent bereavement and losses of her 38 year marriage partner by an unknown cause and her son by suicide, who presents with concerns for her safety. Continue all current medication except Started Wellbutrin XL 150 mg po qam Encourage individual, group and milieu therapy Continue q-15 minute check for safety Recommend sober living treatment at the highest level of care to which the patient is willing to commit. Involuntary Hold Information 96 Hour Hold: 96 Hour Involuntary Admission: No Attestations NPU Medical Necessity Statement*: Inpatient hospitalization is medically necessary and the clinically appropriate intervention at this time. We will monitor medications and make changes as indicated. Likely length of stay is 2-4 days. Coding Level of Care Code Acute Garnishment Specialist for Dea Choudhary Diagnoses Bereavement Z63.4 PTSD (post-traumatic stress disorder) F43.10 Suicidal ideation R45.851 Depression F32.A Hepatitis C B19.20
[2021-06-26] MEDS: docusate sodium 100 mg Capsule PO (20:54)
[2021-06-26] MEDS: trazodone 50 mg Tablet PO ×2 (21:00→23:57)
[2021-06-26 22:00] VITALS: BP 154/93; PULSE 94; RESP 16; TEMP 36.4; O2SAT 100
--- NOTE | 2021-06-26 23:59 | PC.NURSE ---
PRN Administration Patient c/o pain in chest/lungs 11/29. given PRN ibuprofen and trazodone to help with sleep. Patient later returned with pain 11/29 in mouth, stated she continues to have trouble sleeping and requested a warm rag to put on face to help relieve tooth pain and additional trazodone to help with sleep. Given PRN trazodone as ordered.
[2021-06-27 06:00] VITALS: BP 122/55; PULSE 82; RESP 18; TEMP 36.8; O2SAT 96
[2021-06-27] MEDS: cephALEXin 500 mg Capsule PO ×4 (06:12→23:11)
[2021-06-27] MEDS: benzocaine 20% 7 gm 1 APPLIC MUCOUS MEM ×2 (06:14→20:01)
[2021-06-27] MEDS: ibuprofen 800 mg tablet PO ×2 (07:58→15:46)
[2021-06-27] MEDS: psyllium powder Pkt 1 PACKET PO (07:59)
[2021-06-27] MEDS: buPROPion XL (24 HR) 150 mg Tablet PO (08:00)
--- NOTE | 2021-06-27 10:44 | NPU.GN ---
[facility] Topic:Azar Hale General Mood of Group: Christianne did attend and participate in group today. She enjoyed the activity and sharing experiences with others in group. Her hygiene was good, She appeared to be stable mentally and emotionally.
[2021-06-27] MEDS: acetaminophen 325 mg Tablet 650 MG PO ×2 (11:38→21:43)
[2021-06-27] MEDS: calcium carbonate 500 mg Chew Tablet PO (11:38)
[2021-06-27 14:00] VITALS: BP 152/80; PULSE 95; RESP 18; TEMP 36.8; O2SAT 98
--- NOTE | 2021-06-27 19:51 | P.NPUPN_ITS ---
Subjective NPU Subjective: Interval history: Patient is a porting that she is doing okay. She continues to be somatically preoccupied and lacking insight and her situation. We once again discussed smoking cessation as the primary vehicle she has the impact any lung condition that she believes that she has. We talked about her son today and she did so without birthing tears which was a step forward. She continued to have somatic concerns about side effects but not be able to identify that her experience could be related to her regular use of Benadryl. Mental Status Exam MSE Comments: This is a slender, older white female looking older than her stated age, in hospital scrubs with limited grooming and eye contact. No abnormal movements except for mild psychomotor retardation Cooperative with exam in no acute distress. Speech was decreased rate and volume. Patient mood described as a little better, affect congruent. Thought process, more organized at times. Thought content: patient denies any suicidal or homicidal ideations, no delusions reported or noted but some concern for some somatic delusions exists and denies any auditory or visual hallucinations. Attention and concentration are intact and memory appears questionable at times but none were formally tested. She is alert and oriented three times. Insight and judgment appear limited. Impulse control is limited. Vitals/I&O/Wt Last Vital Signs Temp 98.2 F 06/27/21 14:00 Pulse 95 06/27/21 14:00 Resp 18 06/27/21 14:00 BP 152/80 06/27/21 14:00 Pulse Ox 98 06/27/21 14:00 Data NPU : 06/24/21 19:44 06/24/21 19:44 Micro: Microbiology 06/24/21 19:34 Urine Culture - Final Urine,Clean Catch Microbiology 06/24/21 19:34 Urine,Clean Catch Urine Culture - Final A&P Assessment and plan (1) Bereavement: Status: Acute (2) PTSD (post-traumatic stress disorder): Status: Acute (3) Suicidal ideation: Status: Acute (4) Depression: Status: Acute (5) Hepatitis C: Status: Acute Plan This is a 61 year old white female with a long history of trauma, question of PTSD, with recent bereavement and losses of her 38 year marriage partner by an unknown cause and her son by suicide, who presents with concerns for her safety. Continue all current medication except Started Wellbutrin XL 150 mg po qam Encourage individual, group and milieu therapy Continue q-15 minute check for safety Recommend sober living treatment at the highest level of care to which the patient is willing to commit. Involuntary Hold Information 96 Hour Hold: 96 Hour Involuntary Admission: No Attestations NPU Medical Necessity Statement*: Inpatient hospitalization is medically necessary and the clinically appropriate intervention at this time. We will monitor medications and make changes as indicated.? Likely length of stay is 1-3 days. Coding Level of Care Code Acute [employer]regational Care Pastor for Chg Fwd Diagnoses Bereavement Z63.4 PTSD (post-traumatic stress disorder) F43.10 Suicidal ideation R45.851 Depression F32.A Hepatitis C B19.20
[2021-06-27] MEDS: trazodone 50 mg Tablet PO (20:01)
[2021-06-27] MEDS: docusate sodium 100 mg Capsule PO (20:01)
[2021-06-27 20:32] VITALS: BP 132/76; PULSE 95; RESP 20; TEMP 36.5; O2SAT 98
--- NOTE | 2021-06-27 21:03 | PC.NURSE ---
Patient requested medication to help her sleep. Trazadone was given.
[2021-06-28] MEDS: ibuprofen 800 mg tablet PO (01:35)
[2021-06-28] MEDS: trazodone 50 mg Tablet PO (02:14)
[2021-06-28] MEDS: cephALEXin 500 mg Capsule PO ×2 (05:44→11:35)
[2021-06-28 06:00] VITALS: BP 111/71; PULSE 80; RESP 18; TEMP 36.7; O2SAT 96
[2021-06-28] MEDS: buPROPion XL (24 HR) 150 mg Tablet PO (08:48)
[2021-06-28] MEDS: acetaminophen 325 mg Tablet 650 MG PO (08:48)
--- NOTE | 2021-06-28 10:36 | NPU.GN ---
[facility] Topic: Fan Chinchilla General Mood of Group: Christianne attended and participated in group. She was social, her hygiene was good and she seemed stable at this time.
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
[2021-06-28 11:22] VITALS: BP 111/71; PULSE 80; RESP 18; TEMP 36.7; O2SAT 96
== END 2021-06-28 11:49 | disposition home or self-care (01) | DRG 881 ==
LOC: ER 23:05 → NP 23:54
PROVIDERS: Admitting Provider Psychiatry & Neurology Psychiatry; Emergency Provider Emergency Medicine; Visit Provider Psychiatry & Neurology Psychiatry
DX: F32.A Depression, unspecified (principal); R45.851 Suicidal ideations; N39.0 Urinary tract infection, site not specified; Z63.4 Disappearance and death of family member; D64.9 Anemia, unspecified; E86.0 Dehydration; F17.210 Nicotine dependence, cigarettes, uncomplicated; Z81.8 Family history of other mental and behavioral disorders; F43.10 Post-traumatic stress disorder, unspecified; B19.20 Unspecified viral hepatitis C without hepatic coma; J43.9 Emphysema, unspecified; Z79.82 Long term (current) use of aspirin
CPT/HCPCS: 74177; 80053; 80306; 80307; 81001; 84443; 85025; 87086; 93005; 96365; 96372; 96375; 97150; 97165; 99285; J0696; J1200; J2060; J7030; Q9967

== ENCOUNTER 2025-03-12 01:34 | Observation (INO) | payer MEDICARE, SELFPAY ==
[2025-03-12] VITALS (14 sets, daily range): BP systolic 142–185; BP diastolic 80–101; PULSE 90–122; RESP 16–22; TEMP 36.4–37; O2SAT 93–99; BMI 21.1
--- NOTE | 2025-03-12 01:41 | ECG_ITS ---
[facility] Test Date: 2025-03-12 Pat Name: Christianne Woodson Department: Room: Gender: Female [place] [employer]: : 1960 Requested By: Kane House Order Number: [id number] Oh MD: Rhianna Erwin M.D. Measurements Intervals [place] Rate: 115 P: 87 IN: 178 QRS: 39 QRSD: 83 T: 62 QT: 339 QTc: 470 Interpretive Statements SINUS TACHYCARDIA ABNORMAL RHYTHM ECG Non diagnostic T wave changes Compared to ECG 06/24/2021 19:45:29 No significant changes Electronically Signed On 03-13-2025 14:06:05 [employer]UTTER PINION by Rhianna Erwin M.D. [email or web address]
--- NOTE | 2025-03-12 01:43 | CTR_ITS ---
PROCEDURE INFORMATION: Exam: CTA Chest With Contrast Exam date and time: 03/12/2025 2:38 AM Age: 65 years old Clinical indication: Abdominal pain; Other: SOB; Additional info: Abrupt SOB, tachycardia TECHNIQUE: Imaging protocol: Computed tomographic angiography of the chest with contrast. Exam focused on the arteries. 3D rendering (Not supervised by radiologist): MIP and/or 3D reconstructed images were created by the technologist. Radiation optimization: All CT scans at this facility use at least one of these dose optimization techniques: automated exposure control; mA and/or kV adjustment per patient size (includes targeted exams where dose is matched to clinical indication); or iterative reconstruction. Contrast material: OMNI 350; Contrast volume: 100 ml; Contrast route: INTRAVENOUS (IV); COMPARISON: CR (CHEST, ) 03/12/2025 1:49 AM RADIATION DOSE METRICS: Total DLP (mGy-cm): 793.77 FINDINGS: Pulmonary arteries: No pulmonary embolism. Aorta: Unremarkable. No aortic aneurysm. No aortic dissection. Lungs: Mild-moderate centrilobular emphysema. Pleural spaces: Unremarkable. No pneumothorax. No pleural effusion. Heart: Unremarkable. No cardiomegaly. No pericardial effusion. Lymph nodes: Unremarkable. No enlarged lymph nodes. Diaphragm: Small hiatal hernia. Bones/joints: Unremarkable. No acute fracture. Soft tissues: Unremarkable. COMMENTS: The presence of pulmonary emphysema on CT is an independent risk factor for lung cancer. In the absence of a history or active diagnosis of lung cancer, it is recommended that this patient with emphysema be evaluated for enrollment in a low dose CT lung cancer screening program. PROCEDURE INFORMATION: Exam: CT Abdomen And Pelvis With Contrast Exam date and time: 03/12/2025 2:38 AM Age: 65 years old Clinical indication: Abdominal pain; Other: SOB; Additional info: Abrupt SOB, tachycardia TECHNIQUE: Imaging protocol: Computed tomography of the abdomen and pelvis with contrast. Radiation optimization: All CT scans at this facility use at least one of these dose optimization techniques: automated exposure control; mA and/or kV adjustment per patient size (includes targeted exams where dose is matched to clinical indication); or iterative reconstruction. Contrast material: OMNI 350; Contrast volume: 100 ml; Contrast route: INTRAVENOUS (IV); COMPARISON: CT abdomen pelvis w con* [id number] 06/24/2021 10:15 PM RADIATION DOSE METRICS: Total DLP (mGy-cm): 793.77 FINDINGS: Liver: Hepatic steatosis. Gallbladder and biliary ducts: Normal. No calcified stones. No ductal dilation. Pancreas: Normal. No ductal dilation. Spleen: Normal. No splenomegaly. Adrenal glands: Normal. No mass. Kidneys and ureters: Normal. No hydronephrosis. Stomach and bowel: Diverticulosis, without acute diverticulitis. No small bowel obstruction. No free air. Metallic densities at the gastroesophageal junction, correlate with surgical history. Appendix: No evidence of appendicitis. Intraperitoneal space: See Stomach and bowel finding. Vasculature: Atherosclerotic changes of the aorta. Lymph nodes: Unremarkable. No enlarged lymph nodes. Urinary bladder: Unremarkable as visualized. Reproductive: Unremarkable as visualized. Bones/joints: Degenerative changes of the spine. Soft tissues: Unremarkable. CT/CT angio chest w abd pel w con IMPRESSION: 1. No pulmonary embolism. 2. Mild-moderate centrilobular emphysema. IMPRESSION: Diverticulosis, without acute diverticulitis. No small bowel obstruction. No free air.
--- NOTE | 2025-03-12 01:44 | XRR_ITS ---
PROCEDURE INFORMATION: Exam: XR Chest Exam date and time: 03/12/2025 1:49 AM Age: 65 years old Clinical indication: Shortness of breath; Additional info: SOB TECHNIQUE: Imaging protocol: Radiologic exam of the chest. Views: 1 view. COMPARISON: CR XR chest 1V portable [id number] 05/30/2021 3:59 PM FINDINGS: Lungs: Unremarkable. No consolidation. Pleural spaces: Unremarkable. No pleural effusion. No pneumothorax. Heart/Mediastinum: Unremarkable. No cardiomegaly. Bones/joints: Unremarkable. Intraperitoneal space: Surgical clips in the epigastric region, correlate with surgical history. XR/XR chest 1V portable [id number] IMPRESSION: No acute findings.
--- NOTE | 2025-03-12 01:48 | ED_ITS ---
HPI - SOB/Dyspnea 2 General: Chief Complaint: Shortness of Breath/Dyspnea Stated Complaint: SOB History of Present Illness: HPI Narrative: Patient is a 65-year-old female with a history of hyponatremia, COPD on room air, hypertension, depression who presents with acute onset of severe dyspnea, worsened significantly compared to baseline. She reports that her breathing became much worse suddenly upon waking tonight, with associated nausea and abdominal pain. She denies fever, seizures, blood clots, or recent changes in her health prior to this episode. She is not normally on home oxygen or daily breathing treatments. With all of this, she felt presyncopal which ultimately led her to calling EMS. She was tachypneic in the 30s for them, was given albuterol, other vital stable. Associated symptoms: Reports abdominal pain and nausea Related Data Previous Rx's ?Medication ?Instructions ?Recorded aspirin 81 mg tablet,delayed 81 mg PO DAILY #30 tabs 0 05/30/21 release bupropion HCl 150 mg 24 hr tablet, 150 mg PO DAILY 30 days #30 tabs 06/28/21 extended release trazodone 50 mg tablet 50 mg PO BEDTIME PRN Sleep 3 0 days 06/28/21 #30 tabs Allergies Allergy/AdvReac Type Severity Reaction Status Date / Time No Known Allergies Allergy Verified 03/26/21 03:14 Review of Systems 2 General: Reports: 10 or more systems reviewed and unremarkable except in HPI and below Resp: Reports: dyspnea and non-productive cough GI: Reports: abdominal pain and nausea PFSH ED 2 PFSH: Medical History (Updated 03/12/25 @ 06:11 by Norberto Grant DO) Hepatitis C Surgical History (Updated 07/05/21 @ 07:07 by Nabor Mayen MD) No significant past surgical history Family History Denies family history of CAD (coronary artery disease) Physical Exam 2 Narrative: EXAM NARRATIVE: Chronically ill-appearing, mild respiratory distress on arrival, sinus tachycardia, normotensive, afebrile. Breathing in the mid 20s on 2 L of oxygen, saturating at 95%, mild accessory muscle usage, able to speak in a few words before getting short of breath, expiratory wheezing throughout. Abdomen with mild diffuse tenderness, decreased bowel sounds, not peritonitic, no localizing signs, no CVA tenderness. GCS 15. Course 2 Vital Signs: Vital signs: Vital Signs Temperature 98.0 F 03/12/25 01:36 Pulse Rate 122 H 03/12/25 05:41 Respiratory Rate 20 H 03/12/25 02:56 Blood Pressure 159/85 03/12/25 05:41 Pulse Oximetry 95 03/12/25 05:41 Oxygen Delivery Me thod Nasal Cannula 03/12/25 05:41 Oxygen Flow Rate 2 03/12/25 05:41 Clincial Decision Support The following clinical decision support tools were used to aid in care of the patient HEART Score -> History: Moderately Suspicious, EKG: Normal, Age: 65 or more yrs, Risk Factors: 1 or 2 Risk Factors, Troponin: Baseline Trop <16 ng/L. Resulting HEART Score: 4. MDM - SOB/Dyspnea Medical Decision Making -ddx: COPD exacerbation, URI, pneumonia, CHF, PE, anxiety, hyponatremia - Patient arrives with abrupt onset of shortness of breath, has history of COPD, has not smoked for 2 months, no recent flulike symptoms, at her baseline breathing before waking up like this and probably this evening, respiratory exam with mild end expiratory wheezes but tachypnea and tachycardia seemingly out of proportion, will evaluate with CT PE, CT abdomen pelvis with her nausea, get cardiac and infectious labs, administer albuterol and steroids and reassess. - Patient had negative CT scans for any PE, intra-abdominal pathology. Laboratory workup with elevated lactate at 4 and then a liter of fluids and increased to 6.2, alcohol level of 100, has been about 8 hours since she is trying, have concerns that she is having development of an alcoholic ketoacidosis, given additional unit of fluids, given Ativan with mild improvement in tachycardia but still present and so due to this she was admitted to the hospitalist for further management in stable condition. Lab Data 03/12/25 01:20 03/12/25 01:20 Labs/Radiology: Radiology Impressions Chest/Abdomen/Pelvis CT 03/12/25 01:43 IMPRESSION: 1. No pulmonary embolism. 2. Mild-moderate centrilobular emphysema. IMPRESSION: Diverticulosis, without acute diverticulitis. No small bowel obstruction. No free air. Chest X-Ray 03/12/25 01:44 IMPRESSION: No acute findings. Laboratory Results WBC 7.03 10^3/uL (3.29-11.43) 11/21/25 01:20 RBC 3.70 10^6/uL (3.85-5.65) L 03/12/25 01:20 Hgb 11.00 g/dL (11.27-16.99) L 03/12/25 01:20 Hct 32.0 % (36-47) L 03/12/25 01:20 MCV 86.5 fl (85-98) 03/12/25 01:20 MCH 29.7 pg (27-33) 03/12/25 01:20 MCHC 34.4 g/dL (30-55) 03/12/25 01:20 RDW 14.6 % (12.1-15.1) 03/12/25 01:20 Plt Count 251 10^3/cmm (157-399) 03/12/25 01:20 MPV 9.2 fL (7.4-10.4) 03/12/25 01:20 Neut % (Auto) 41.9 % 03/12/25 01:20 Lymph % (Auto) 45.0 % 03/12/25 01:20 [place] % (Auto) 9.4 % 03/12/25 01:20 Eos % (Auto) 2.7 % 03/12/25 01:20 Baso % (Auto) 0.9 % 03/12/25 01:20 Neut # (Auto) 2.95 10^3/uL (1.8-7.7) 03/12/25 01:20 Lymph # (Auto) 3.2 10^3/uL (0.8-4.8) 03/12/25 01:20 [place] # (Auto) 0.7 10^3/uL (0.2-0.9) 03/12/25 01:20 Eos # (Auto) 0.2 10^3/uL (0.0-0.8) 03/12/25 01:20 Baso # (Auto) 0.1 10^3/uL (0.0-0.1) 03/12/25 01:20 Nucleated RBC % (auto) 0 % 03/12/25 01:20 Nucleated RBCs # 0.0 /100WBC 03/12/25 01:20 Specimen Type Venous 03/12/25 02:25 Sample Site Vein 03/12/25 02:25 Magdiel Test Pos 03/12/25 02:25 VBG pH 7.42 (7.32-7.42) 03/12/25 02:25 VBG pCO2 32.2 mmHg (41-51) L 03/12/25 02:25 VBG pO2 33.6 mmHg (25-40) 03/12/25 02:25 VBG HCO3 20.7 mmol/L (24-28) L 03/12/25 02:25 VBG Base Excess -3.1 mmol/L (-3.0-3.0) L 03/12/25 02:25 VBG Hematocrit 34.2 % (37-47) L 03/12/25 02:25 O2 Delivery Device Room air 03/12/25 02:25 Roll Trucker ID Bd 03/12/25 02:25 Sodium 137 mmol/L (136-145) 03/12/25 01:20 Potassium 4.2 mmol/L (3.5-5.1) 03/12/25 01:20 Chloride 100 mmol/L (98-107) 03/12/25 01:20 Carbon Dioxide 19 mmol/L (22-29) L 03/12/25 01:20 Anion Gap 22.2 (5-19) H 03/12/25 01:20 BUN 21 mg/dL (8-23) 03/12/25 01:20 Creatinine 0.7 mg/dL (0.5-0.9) 03/12/25 01:20 GFR Calculation 83.7 mL/min (90-130) L 03/12/25 01:20 Glucose 255 mg/dL (65-115) H 03/12/25 01:20 Calculated Osmolality 296 mOsm/kg (285-295) H 03/12/25 01:20 Lactic Acid 4.0 mmol/L (0.5-2.2) H 03/12/25 01:20 Lactic Acid (Sepsis) 6.3 mmol/L (0.5-2.2) H* 03/12/25 04:35 Calcium 8.9 mg/dL (8.5-10.5) 03/12/25 01:20 Magnesium 2.2 mg/dL (1.7-2.3) 03/12/25 01:20 Total Bilirubin 0.4 mg/dL (0.15-1.2) 03/12/25 01:20 AST 48 U/L (0-32) H 03/12/25 01:20 ALT 33 U/L (0-33) 03/12/25 01:20 Alkaline Phosphatase 60 U/L (35-105) 03/12/25 01:20 Troponin T Baseline 15 ng/L (0-10) H 03/12/25 01:20 Troponin T 120 Minute 15.58 ng/L (0-10) H 03/12/25 03:15 Delta Troponin T 0.58 ABS# (0-10) 03/12/25 03:15 C-Reactive Protein 3.0 mg/L (0.0-4.9) 03/12/25 01:20 NT-Pro-B Natriuret Pep < 36 pg/mL (0-125) 03/12/25 01:20 Total Protein 7.4 g/dL (6.6-8.7) 03/12/25 01:20 Albumin 4.4 g/dL (3.5-5.2) 03/12/25 01:20 Globulin 3.0 g/dL (1.3-4.6) 03/12/25 01:20 Lipase 39 U/L (13-60) 03/12/25 01:20 Procalcitonin 0.05 ng/mL (0-0.5) 03/12/25 01:20 Urine Color Yellow (Yellow) 03/12/25 03:06 Urine Appearance Clear (CLEAR) 03/12/25 03:06 Urine pH 5.5 (5-7) 03/12/25 03:06 Ur Specific [place] 1.040 (1.005-1.030) H 03/12/25 03:06 Urine Protein Negative (Negative) 03/12/25 03:06 Urine Glucose (UA) Negative (Normal) 03/12/25 03:06 Urine Ketones Negative (Negative) 03/12/25 03:06 Urine Blood Negative (Negative) 03/12/25 03:06 Urine Nitrate Negative (Negative) 03/12/25 03:06 Urine Bilirubin Negative (Negative) 03/12/25 03:06 Urine Urobilinogen 0.2 mg/dL (Negative) 03/12/25 03:06 Ur Leukocyte Esterase Negative (Negative) 03/12/25 03:06 Urine RBC 0-2 /hpf (0-2) 03/12/25 03:06 Urine WBC 0-5 /hpf (0-5) 03/12/25 03:06 Ur Squamous Epith Cells 0-5 /hpf (0-5) 03/12/25 03:06 Amorphous Sediment Not Reportable 03/12/25 03:06 Urine Bacteria None seen /hpf (NONE) 03/12/25 03:06 Hyaline Casts 2.87 /lpf 03/12/25 03:06 Ethyl Alcohol 112 mg/dL (0-10) H 03/12/25 01:20 Influenza A (PCR) Negative (Negative) 03/12/25 01:58 Influenza Type B (PCR) Negative (Negative) 03/12/25 01:58 RSV (PCR) Negative (Negative) 03/12/25 01:58 SARS-CoV-2 (PCR) Negative (Negative) 03/12/25 01:58 All radiology interpretation(s) finalized by discharge EKG Data EKG 1: Interpretation: Sinus tachycardia at 115 bpm, no interval prolongation, no ST elevation or depression Discharge Plan Discharge Admit Provider: Norberto Grant Condition: Stable Coding Level of Care Code ED Respiratory Physician for Dea Choudhary
[2025-03-12 01:54] LABS: Hematocrit 32.0 % (36-47); Hemoglobin 11.00 g/dL (11.27-16.99); Mean Corpuscular HGB Conc 34.4 g/dL (30-55); Mean Corpuscular Hemoglobin 29.7 pg (27-33); Mean Corpuscular Volume 86.5 fl (85-98); Nucleated Red Blood Cells % 0 %; Platelet Count 251 10^3/cmm (157-399); Red Blood Count 3.70 10^6/uL (3.85-5.65); White Blood Count 7.03 10^3/uL (3.29-11.43)
[2025-03-12] MEDS: methylPREDNISolone sod succ 125 mg/2 mL INJ IV (02:00)
[2025-03-12 02:04] LABS: Troponin(5th) Baseline 15 ng/L (0-10)
[2025-03-12 02:18] LABS: NT Pro B Type Natriuretic Pept < 36 pg/mL (0-125); Procalcitonin 0.05 ng/mL (0-0.5)
[2025-03-12 02:29] LABS: Alanine Aminotransferase 33 U/L (0-33); Albumin Level 4.4 g/dL (3.5-5.2); Alkaline Phosphatase 60 U/L (35-105); Anion Gap 22.2 (5-19); Aspartate Amino Transferase 48 U/L (0-32); Blood Urea Nitrogen 21 mg/dL (8-23); Calcium 8.9 mg/dL (8.5-10.5); Carbon Dioxide 19 mmol/L (22-29); Chloride 100 mmol/L (98-107); Globulin 3.0 g/dL (1.3-4.6); Glucose 255 mg/dL (65-115); Lipase 39 U/L (13-60); Magnesium 2.2 mg/dL (1.7-2.3); Osmolality Calculated 296 mOsm/kg (285-295); Potassium 4.2 mmol/L (3.5-5.1); Sodium 137 mmol/L (136-145); Total Protein 7.4 g/dL (6.6-8.7)
[2025-03-12 02:31] LABS: Lactic Sepsis W/Reflex 4.0 mmol/L (0.5-2.2)
[2025-03-12 02:34] LABS: Base Excess VBG -3.1 mmol/L (-3.0-3.0); Blood Gas Allen Test Pos; Blood Gas Operator Identificat BD; Blood Gas Sample Site VEIN; Blood Gas Sample Type Venous; HCO3 VBG 20.7 mmol/L (24-28); PCO2 VBG 32.2 mmHg (41-51); PO2 VBG 33.6 mmHg (25-40); Venous Blood Gas Hematocrit 34.2 % (37-47); pH VBG 7.42 (7.32-7.42)
[2025-03-12 02:42] LABS: Respiratory Syncytial Virus Ce NEGATIVE (Negative); SARS-CoV-2 PCR NEGATIVE (Negative)
[2025-03-12] MEDS: iohexol 350 mg/mL 500 mL Btl (per mL) IV (02:54)
[2025-03-12] MEDS: oxyCODONE 5 mg IR Tab/Cap PO (02:56)
[2025-03-12 03:22] LABS: Glucose Urine UA Negative (Normal); Nitrate Urine Negative (Negative)
[2025-03-12 03:27] LABS: Add Urine Microscopic? YES
[2025-03-12 03:34] LABS: Specific Gravity, Urine 1.040 (1.005-1.030)
[2025-03-12 03:39] LABS: Reflex Lactate Order REFLEX LACTIC ORDERD
[2025-03-12 03:44] LABS: Troponin 5 2HR 15.58 ng/L (0-10); Troponin 5 2HR Delta 0.58 ABS# (0-10)
[2025-03-12] MEDS: LORazepam 2 mg/mL INJ 1 mL 1 MG IVP (04:22)
[2025-03-12 04:43] LABS: Alcohol Level 112 mg/dL (0-10)
[2025-03-12 05:00] LABS: Lactic Acid level (Lactate) 6.3 mmol/L (0.5-2.2)
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
[2025-03-12 06:29] LABS: Lactic Sepsis W/Reflex 3.7 mmol/L (0.5-2.2)
[2025-03-12 07:23] LABS: Reflex Lactate Order REFLEX LACTIC ORDERD
[2025-03-12 07:48] LABS: Estmated Average Glucose 100; Hemoglobin A1C 5.1 % (4.0-6.0)
[2025-03-12 07:49] LABS: Lactate (Lactic Acid level) 2.4 mmol/L (0.5-2.2)
[2025-03-12 07:51] LABS: Anion Gap 18.8 (5-19); Blood Urea Nitrogen 14 mg/dL (8-23); Calcium 8.6 mg/dL (8.5-10.5); Carbon Dioxide 22 mmol/L (22-29); Chloride 98 mmol/L (98-107); Glucose 173 mg/dL (65-115); Osmolality Calculated 283 mOsm/kg (285-295); Potassium 4.8 mmol/L (3.5-5.1); Sodium 134 mmol/L (136-145)
[2025-03-12 08:14] LABS: PCP Screen Urine Negative (Negative)
--- NOTE | 2025-03-12 10:33 | P.PN_ITS ---
Subjective 2 Subjective: Patient is seen this morning on the medical floor. She is a 65-year-old female who was admitted due to complaint of some visual symptoms. Currently, she complains of anxiety, and request to be started on her home medications, which includes MiraLAX, lisinopril, as well as some antianxiety medication that she does not remember names. Vitals/I&O/Wt Last Vital Signs Temp 98.6 F 03/12/25 08:41 Pulse 107 H 03/12/25 08:41 Resp 18 03/12/25 08:41 BP 167/82 03/12/25 08:41 Pulse Ox 96 03/12/25 08:41 O2 Del Method Room Air 03/12/25 08:41 O2 Flow Rate 2 03/12/25 05:41 03/11/25 03/12/25 03/12/25 22:59 06:59 14:59 Intake Total 1999 Output Total 1000 / 1000 Balance 1999 -1000 / -1000 Weight last 48 hrs Weight 61.099 kg Weight 63.503 kg Data 03/12/25 01:20 03/12/25 12:02 A&P Assessment and plan 1. Symptoms of stress: Plan: The H&P of the admitting physician reviewed. Current orders have been reviewed. I am not yet able to fully understand clearly why patient was admitted for. There is a mention of possible alcohol acidosis, NSTEMI, etc., but alert was able to be solidly together. Patient is not able to give much information at this time, as she keeps insisting on getting her home medications. However, said that she is getting BMP every 4 hours; this has been stable, and do not need to be continued. Patient is also mildly to moderately tachycardic, the reason of which I am not sure. However, I have gone ahead and resumed her home medications, which include lisinopril. One-time dose of Xanax given. I will go ahead and add some beta-blockers, metoprolol, and monitor closely. Continue to keep patient in observation, and anticipate discharge tomorrow. PDMP PDMP Reviewed: Not Reviewed Attestations 2 Medical Necessity Statement*: See above. Otherwise, currently on observation. Coding Level of Care Code Acute Code for [facility] Diagnoses Symptoms of stress F43.9
[2025-03-12 12:33] LABS: Anion Gap 20.4 (5-19); Blood Urea Nitrogen 12 mg/dL (8-23); Calcium 9.1 mg/dL (8.5-10.5); Carbon Dioxide 22 mmol/L (22-29); Chloride 95 mmol/L (98-107); Glucose 177 mg/dL (65-115); Osmolality Calculated 280 mOsm/kg (285-295); Potassium 4.4 mmol/L (3.5-5.1); Sodium 133 mmol/L (136-145)
--- NOTE | 2025-03-12 13:27 | PC.NURSE ---
pt refused tylenol, stated only excedrian works. educ pt that i did not have order for that med. still refused tylenol
[2025-03-12] MEDS: polyethylene glycol 3350 Pkt 17 gm PO (17:37)
--- NOTE | 2025-03-12 19:12 | PC.NURSE ---
pt was going to leave [facility], dr came into room and pt staying, pt refused to have iv reinserted.
[2025-03-12] MEDS: MELATONIN 3 MG TABLET 6 MG PO (21:29)
[2025-03-13 01:00] VITALS: BP 137/74; PULSE 74; RESP 17; TEMP 36.8; O2SAT 95
[2025-03-13 04:00] VITALS: BP 157/92; PULSE 72
[2025-03-13 05:35] VITALS: BP 157/89; PULSE 68; RESP 16; TEMP 37.2; O2SAT 96
[2025-03-13] MEDS: polyethylene glycol 3350 Pkt 17 gm PO (05:36)
[2025-03-13 06:00] VITALS: PULSE 71
[2025-03-13 07:53] VITALS: BP 134/63; PULSE 76; RESP 14; TEMP 37; O2SAT 91
[2025-03-13 08:38] LABS: Hematocrit 32.3 % (36-47); Hemoglobin 10.50 g/dL (11.27-16.99); Mean Corpuscular HGB Conc 32.5 g/dL (30-55); Mean Corpuscular Hemoglobin 29.7 pg (27-33); Mean Corpuscular Volume 91.2 fl (85-98); Nucleated Red Blood Cells % 0 %; Platelet Count 192 10^3/cmm (157-399); Red Blood Count 3.54 10^6/uL (3.85-5.65); White Blood Count 6.93 10^3/uL (3.29-11.43)
--- NOTE | 2025-03-13 08:51 | PM.DCS ---
Discharge Providers Date of Admission: 03/12/25 05:43 Date of Discharge: March 13, 2025 Attending Provider at Admission: Norberto Grant DO Attending Provider at Discharge: You Berman MD Diagnoses at Discharge Discharge Diagnosis 1. Symptoms of stress: Details from hospital stay: Resolved. 2. Bizarre behavior: Details from hospital stay: Resolved. 3. Lactic acidosis: Details from hospital stay: Resolved. 4. Essential (primary) hypertension: 5. Chronic hyponatremia: Reason for Visit Reason for Visit: Nonspecific symptoms Brief History: Patient hospitalized to the ER with some nonspecific symptoms. The only thing I could get was topical. Start this of breath, and other behavioral symptoms that were nonspecific. Lab work was reviewed lactic acidosis, with mildly decreased sodium level. Consequently, she was admitted Place in observation. Hospital Course Hospital Course Upon further review there in the morning, patient appeared very anxious, but pretty much re-directable. Her symptoms were treated empirically with some PRN Xanax, and IV rehydration, plus close monitoring. 12 to 24 hours later, patient has returned to baseline, and attributed her symptoms to recent rather [id number] alcohol consumption on the day/night of presentation. She denies chronic abuse of alcohol, and, having returned back to her baseline, requesting for discharge today. Physical Exam Narrative: General: Awake and alert patient. Resp: No obvious respiratory distress or difficulty breathing. Skin: No obvious rashes or new skin lesions. All other physical findings essentially within normal limits. Discharge Data Studies Completed and Pending Completed Studies During Hospitalization Category Date Time Status CT Angio Chest + Abdomen Pelvis w/ contrast; 42514 + Cat Scan 03/12/25 01:43 Completed 66629 Stat XR chest 1V portable [id number] Stat Exams 03/12/25 01:44 Completed Pending at discharge Category Date Time Status BMP [Basic Metabolic Panel] Routine Lab 03/13/25 08:30 Received Radiology Impressions Chest/Abdomen/Pelvis CT 03/12/25 01:43 IMPRESSION: 1. No pulmonary embolism. 2. Mild-moderate centrilobular emphysema. IMPRESSION: Diverticulosis, without acute diverticulitis. No small bowel obstruction. No free air. Chest X-Ray 03/12/25 01:44 IMPRESSION: No acute findings. Laboratory Results Mild decreased sodium of 133-134. Lactic acid of 6.3, with repeats levels of 3.7 and 2.4. Other Labs: within normal limits; otherwise, insignificant. Vitals Last Vital Signs Temp 98.6 F 03/13/25 07:53 Pulse 76 03/13/25 07:53 Resp 14 03/13/25 07:53 BP 134/63 03/13/25 07:53 Pulse Ox 91 03/13/25 07:53 O2 Del Method Room Air 03/13/25 07:53 O2 Flow Rate 2 03/12/25 05:41 Discharge Plan Discharge Patient Disposition: Home Condition: Stable Prescriptions: New alprazolam 0.25 mg tablet 0.125 - 0.25 mg PO BID PRN (Reason: anxiety) Qty: 20 0RF Continued lisinopril 40 mg Tablet 40 mg PO DAILY No Action polyethylene glycol 3350 [Miralax] 17 gram/dose Powder 17 g PO DAILY Discharge Order = DC NOW: Discharge Order (Routine); Ordered 03/13/25 Ordered By: You Berman Referrals: [facility] [Other] - 2 weeks Referral Note: We have notified your physician's clinic of the need for a follow-up appointment to be scheduled. If you have not heard from them within the next 2 business days, please call them directly. Discharge Diet: Usual diet Discharge Activity: Resume usual activity and Increase activity as tolerated Patient Instructions: Alprazolam (By mouth), Anxiety (GEN), Opioid Safety, Patient Portal & Olivia Instructions Activity Restrictions/Additional Instructions: Follow up with your primary care provider within the next 1 to 2 weeks/as needed. Discharge Attestations Time Spent in Discharge Care*: less than 30 min Quality Metrics Clinical Quality Measures [ No reported AMI, CVA or VTE this stay] Coding Level of Care Code Acute Code for Chg Fwd Diagnoses Symptoms of stress F43.9 Bizarre behavior R46.2 Lactic acidosis E87.20 Essential (primary) hypertension I10 Chronic hyponatremia E87.1
[2025-03-13 09:05] LABS: Anion Gap 15.6 (5-19); Blood Urea Nitrogen 13 mg/dL (8-23); Calcium 9.0 mg/dL (8.5-10.5); Carbon Dioxide 24 mmol/L (22-29); Chloride 102 mmol/L (98-107); Glucose 153 mg/dL (65-115); Osmolality Calculated 289 mOsm/kg (285-295); Potassium 3.6 mmol/L (3.5-5.1); Sodium 138 mmol/L (136-145)
[2025-03-13 09:11] VITALS: BP 134/63; PULSE 76; RESP 14; TEMP 37; O2SAT 91
== END 2025-03-13 09:20 | disposition home or self-care (01) ==
LOC: ER 05:58 → ER IP 06:16 → MEDSURG 08:59 → ER IP 03-13 09:03
PROVIDERS: Admitting Provider Internal Medicine; Emergency Provider Student in an Organized Health Care Education/Training Program; Visit Provider Family Medicine
DX: E87.20 Acidosis, unspecified (principal); F43.9 Reaction to severe stress, unspecified; I10 Essential (primary) hypertension; E87.1 Hypo-osmolality and hyponatremia; Z79.82 Long term (current) use of aspirin; Z86.19 Personal history of other infectious and parasitic diseases; I25.10 Atherosclerotic heart disease of native coronary artery without angina pectoris; Z87.891 Personal history of nicotine dependence
CPT/HCPCS: 36415; 71045; 71275; 74177; 80048; 80053; 80306; 80307; 81001; 82803; 83036; 83605; 83690; 83735; 83880; 84145; 84484; 85025; 86140; 87637; 93005; 94640; 96361; 96374; 96375; 99285; G0378; J2060; J2919; J7030; J7120; J9999

== ENCOUNTER 2025-03-25 16:44 | Observation (INO) | payer MEDICARE, SELFPAY ==
--- NOTE | 2025-03-25 16:42 | XRR_ITS ---
PROCEDURE INFORMATION: Exam: XR Chest Exam date and time: 03/25/2025 04:52 PM Age: 65 years old Clinical indication: Pain; Angina pectoris; Additional info: Chest pain TECHNIQUE: Imaging protocol: Radiologic exam of the chest. Views: 1 view. COMPARISON: CT angio chest w abd pel w con 03/12/2025 02:38 AM FINDINGS: Lungs: Probable bilateral calcified hilar lymph nodes. No airspace consolidation. Pleural spaces: Unremarkable. No pleural effusion. No pneumothorax. Heart/Mediastinum: Postoperative changes of the gastroesophageal junction. Cardiac size and configuration is stable. Bones/joints: Unremarkable. XR/XR chest 1V portable [id number] IMPRESSION: No acute process.
--- NOTE | 2025-03-25 16:42 | ECG_ITS ---
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 Measurements Intervals [place]amond Rate: 117 P: 66 LA: 160 QRS: 31 QRSD: 77 T: 60 QT: 313 QTc: 438 Interpretive Statements SINUS TACHYCARDIA ABNORMAL RHYTHM ECG Compared to ECG 03/12/2025 01:41:53 T-wave abnormality no longer present Electronically Signed On 03-26-2025 18:47:42 TALENT AGENT by Rhianna Erwin M.D. [id number]
[2025-03-25 16:49] VITALS: BP 161/106; PULSE 115; RESP 20; TEMP 36.7; O2SAT 99; BMI 21.9
[2025-03-25 16:56] LABS: Hematocrit 34.3 % (36-47); Hemoglobin 11.50 g/dL (11.27-16.99); Mean Corpuscular HGB Conc 33.5 g/dL (30-55); Mean Corpuscular Hemoglobin 30.1 pg (27-33); Mean Corpuscular Volume 89.8 fl (85-98); Nucleated Red Blood Cells % 0 %; Platelet Count 336 10^3/cmm (157-399); Red Blood Count 3.82 10^6/uL (3.85-5.65); White Blood Count 12.19 10^3/uL (3.29-11.43)
[2025-03-25] MEDS: LORazepam 2 mg/mL INJ 1 mL 1 MG IVP (17:04)
--- NOTE | 2025-03-25 17:15 | ED_ITS ---
HPI - Chest Pain 2 General: Chief Complaint: Chest Pain Stated Complaint: chest pain History of Present Illness: 65-year-old female presents emergency ro om with complaint of chest pain. She states she has had chest pain most of the day she has a history of A-fib she has been short of breath as well. She states it began yesterday when she was moving going up and down some stairs. She has a lot of chronic pain issues. There is no new pain or radiation of the chest pain to anywhere else in the body. she is extremely anxious. No fever sweats chills cough or shortness of breath no productive cough. No hemoptysis. Associated symptoms: Reports dyspnea; Deny abdominal pain or fever(s) Related Data Home Medications ?Medication ?Instructions ?Recorded ?Confirmed lisinopril 40 mg tablet 40 mg PO DAILY 03/12/2509/13 Benadryl 25 mg PO BEDTIME PRN Insomni a 03/26/25 03/26/25 polyethylene glycol 3350 17 17 g PO DAILY PRN Constipa tion 03/26/25 03/26/25 gram/dose oral powder (Miralax) sodium chloride 1,000 mg soluble 1,000 mg PO DAILY 09/1303/26/25 tablet Previous Rx's ?Medication ?Instructions ?Recorded alprazolam 0.25 mg tablet 0.125 - 0.25 mg (0.5 - 1 x 0 .25 03/13/25 mg) PO BID PRN anxiety #20 tabs Allergies Allergy/AdvReac Type Severity Reaction Status Date / Time No Known Allergies Allergy Verified 03/26/21 03:14 Review of Systems 2 Const: Denies: fever(s) or chills Card: Reports: chest pain Resp: Reports: dyspnea GI: Denies: abdominal pain : Denies: dysuria, urinary frequency or urinary urgency Musc: Denies: neck pain or back pain Skin/Breast: Denies: rash PFSH ED 2 PFSH: Medical History Hepatitis C Surgical History No significant past surgical history Family History Denies family history of CAD (coronary artery disease) Physical Exam 2 Const: GENERAL APPEARANCE: cooperative ORIENTATION/CONSCIOUSNESS: Yes awake, Yes oriented to person, Yes oriented to place and Yes oriented to time HENMT: COMMON NORMALS: normocephalic, atraumatic and hearing grossly normal bilaterally HEAD & SCALP: normocephalic and atraumatic Resp: COMMON NORMALS: normal respiratory effort, No retractions, No use of accessory muscles and clear to auscultation bilaterally AUSCULTATION: clear to auscultation bilaterally Cardio: COMMON NORMALS: regular rate, regular rhythm and No murmurs present (Cardio) RATE: regular rate RHYTHM: regular rhythm GI: COMMON NORMALS: Soft to palpation and No hepatosplenomegaly present A USCULTATION: Yes normoactive bowel sounds PALPATION: Yes Soft to palpation, No Tenderness to palpation present (GI), No Guarding due to palpation present (GI) and Yes No hepatosplenomegaly present Extremity: COMMON NORMALS: normal to inspection, capillary refill normal, no clubbing, cyanosis or edema, no calf tenderness and no pedal edema Neuro: SENSORIUM/ORIENTATION: Yes oriented to person, Yes oriented to place and Yes oriented to time Skin: COMMON NORMALS: no rashes or lesions noted GENERAL SKIN EXAM: no rashes or lesions noted Course 2 Vital Signs: Vital signs: Vital Signs Temperature 97.7 F 03/29/25 04:00 Pulse Rate 96 03/29/25 07:36 Respiratory Rate 19 H 03/29/25 04:00 Blood Pressure 155/94 03/29/25 07:36 Pulse Oximetry 97 03/29/25 04:00 Oxygen Delivery Me thod Room Air 03/29/25 04:00 MDM - Chest Pain Medical Decision Making Medical decision making Social determinants: Patient has history of PTSD, also has history is with prolonged bereavement and anxiety. Questionable if patient has adequate support at home. I reviewed the patient's medical record. I reviewed the patient's current home meds. Alternate historians: None Differential diagnosis: Atypical chest pain, acute coronary syndrome, pneumonia Lab Review: [] Laboratory tests reviewed white count 12.19 hemoglobin 11.5. Creatinine 1.6 which is a significant elevation space and baseline is usually below 1. CPK 242 troponins trended negative initial troponin 23 2-hour troponin 17.7 for a negative delta of -5. UA was negative no sign of infection Imaging:Chest x-ray no acute abnormalities. No infiltrates no increased vascular markings no pneumonia no pneumothorax no cardiomegaly Assessment of risk Level of risk: High Hospitalization considerations: There is risk of coronary artery disease as well as acute kidney injury patient placed on observation Reexamination: Stable unchanged patient continues to complain of chest pain Assessment and plan: Patient complaining of ongoing chest pain however EKG and troponins are unremarkable. Patient does have moderate acute kidney injury and slightly elevated CPK discussed with hospitalist will admit for the same. Lab Data 03/27/25 10:05 03/27/25 10:05 Radiology Impressions Chest X-Ray 03/25/25 16:42 IMPRESSION: No acute process. Renal Ultrasound 03/25/25 19:28 IMPRESSION: Unremarkable kidneys and bladder. Small postvoid residual. Laboratory Results WBC 12.19 10^3/uL (3.29-11.43) H 03/25/25 16:30 RBC 3.82 10^6/uL (3.85-5.65) L 03/25/25 16:30 Hgb 11.50 g/dL (11.27-16.99) 03/25/25 16:30 Hct 34.3 % (36-47) L 03/25/25 16:30 MCV 89.8 fl (85-98) 03/25/25 16:30 MCH 30.1 pg (27-33) 03/25/25 16:30 MCHC 33.5 g/dL (30-55) 03/25/25 16:30 RDW 14.9 % (12.1-15.1) 03/25/25 16:30 Plt Count 336 10^3/cmm (157-399) 03/25/25 16:30 MPV 8.9 fL (7.4-10.4) 03/25/25 16:30 Neut % (Auto) 66.6 % 03/25/25 16:30 Lymph % (Auto) 22.6 % 03/25/25 16:30 [place] % (Auto) 8.8 % 03/25/25 16:30 Eos % (Auto) 0.9 % 03/25/25 16:30 Baso % (Auto) 0.8 % 03/25/25 16:30 Neut # (Auto) 8.12 10^3/uL (1.8-7.7) H 03/25/25 16:30 Lymph # (Auto) 2.8 10^3/uL (0.8-4.8) 03/25/25 16:30 [place] # (Auto) 1.1 10^3/uL (0.2-0.9) H 03/25/25 16:30 Eos # (Auto) 0.1 10^3/uL (0.0-0.8) 03/25/25 16:30 Baso # (Auto) 0.1 10^3/uL (0.0-0.1) 03/25/25 16:30 Nucleated RBC % (auto) 0 % 03/25/25 16:30 Nucleated RBCs # 0.0 /100WBC 03/25/25 16:30 Sodium 132 mmol/L (136-145) L 03/25/25 16:30 Potassium 5.2 mmol/L (3.5-5.1) H 03/25/25 16:30 Chloride 93 mmol/L (98-107) L 03/25/25 16:30 Carbon Dioxide 22 mmol/L (22-29) 03/25/25 16:30 Anion Gap 22.2 (5-19) H 03/25/25 16:30 BUN 45 mg/dL (8-23) H 03/25/25 16:30 Creatinine 3.1 mg/dL (0.5-0.9) H 03/25/25 16:30 GFR Calculation 15.0 mL/min (90-130) L 03/25/25 16:30 Glucose 149 mg/dL (65-115) H 03/25/25 16:30 Calculated Osmolality 288 mOsm/kg (285-295) 03/25/25 16:30 Calcium 9.5 mg/dL (8.5-10.5) 03/25/25 16:30 Total Bilirubin 0.2 mg/dL (0.15-1.2) 03/25/25 16:30 AST 41 U/L (0-32) H 03/25/25 16:30 ALT 30 U/L (0-33) 03/25/25 16:30 Alkaline Phosphatase 66 U/L (35-105) 03/25/25 16:30 Creatine Kinase 242 U/L (26-192) H 03/25/25 16:30 Troponin T Baseline 23 ng/L (0-10) H 03/25/25 16:30 Total Protein 8.2 g/dL (6.6-8.7) 03/25/25 16:30 Albumin 4.6 g/dL (3.5-5.2) 03/25/25 16:30 Globulin 3.6 g/dL (1.3-4.6) 03/25/25 16:30 Urine Color Yellow (Yellow) 03/25/25 18:04 Urine Appearance Clear (CLEAR) 03/25/25 18:04 Urine pH 6.0 (5-7) 03/25/25 18:04 Ur Specific [place] 1.009 (1.005-1.030) 03/25/25 18:04 Urine Protein Negative (Negative) 03/25/25 18:04 Urine Glucose (UA) Negative (Normal) 03/25/25 18:04 Urine Ketones Negative (Negative) 03/25/25 18:04 Urine Blood Negative (Negative) 03/25/25 18:04 Urine Nitrate Negative (Negative) 03/25/25 18:04 Urine Bilirubin Negative (Negative) 03/25/25 18:04 Urine Urobilinogen 0.2 mg/dL (Negative) 03/25/25 18:04 Ur Leukocyte Esterase Negative (Negative) 03/25/25 18:04 Urine RBC 0-2 /hpf (0-2) 03/25/25 18:04 Urine WBC 0-5 /hpf (0-5) 03/25/25 18:04 Ur Squamous Epith Cells 0-5 /hpf (0-5) 03/25/25 18:04 Amorphous Sediment Not Reportable 03/25/25 18:04 Urine Bacteria None seen /hpf (NONE) 03/25/25 18:04 Hyaline Casts 0-4 /lpf H 03/25/25 18:04 Urine Opiates Screen Negative ng/mL (Negative) 03/25/25 18:04 Ur Barbiturates Screen Negative ng/mL (Negative) 03/25/25 18:04 Ur Phencyclidine Scrn Negative ng/mL (Negative) 03/25/25 18:04 Ur Amphetamines Screen Negative ng/mL (Negative) 03/25/25 18:04 U Benzodiazepines Scrn Negative ng/mL (Negative) 03/25/25 18:04 Urine Cocaine Screen Negative ng/mL (Negative) 03/25/25 18:04 U Marijuana (THC) Screen Positive ng/mL (Negative) H 03/25/25 18:04 Ethyl Alcohol < 10 mg/dL (0-10) 03/25/25 16:30 All radiology interpretation(s) finalized by discharge EKG Data EKG 1: I personally reviewed and interpreted this EKG as follows: Interpretation: EKG 03/25/2025 sinus tachycardia rate of 117 QTc 383 KS interval [address] changes noted. Compared to EKG done 03/12/2025 no significant changes EKG 2: I personally reviewed and interpreted this EKG as follows: Interpretation: EKG 03/25/20252022 sinus rhythm rate of 97 KS interval 157 QTc [address] changes noted no STEMI compared to EKG done earlier same day no changes Discharge Plan Discharge Patient Disposition: Admitted As Inpatient Admit Provider: Amie Marks Clinical Impression: Acute kidney injury, Hepatitis C, Chest pain Condition: Stable Coding Level of Care Code ED [employer] Attendant for Chg Fwd Heart Score HEART Score Components History: Slightly Suspicous EKG: Normal Age: 65 or more yrs Risk Factors: No Risk Factors Known Troponin: Baseline Trop 16-45 ng/L HEART Score RESULT HEART Score: 3
[2025-03-25 17:31] LABS: Alanine Aminotransferase 30 U/L (0-33); Albumin Level 4.6 g/dL (3.5-5.2); Alkaline Phosphatase 66 U/L (35-105); Anion Gap 22.2 (5-19); Aspartate Amino Transferase 41 U/L (0-32); Blood Urea Nitrogen 45 mg/dL (8-23); Calcium 9.5 mg/dL (8.5-10.5); Carbon Dioxide 22 mmol/L (22-29); Chloride 93 mmol/L (98-107); Creatinine Clr Calc Pharmacy 17.5740; Globulin 3.6 g/dL (1.3-4.6); Glucose 149 mg/dL (65-115); Osmolality Calculated 288 mOsm/kg (285-295); Potassium 5.2 mmol/L (3.5-5.1); Sodium 132 mmol/L (136-145); Total Protein 8.2 g/dL (6.6-8.7)
[2025-03-25 17:38] LABS: Troponin(5th) Baseline 23 ng/L (0-10)
[2025-03-25 17:52] VITALS: BP 153/95; PULSE 107; RESP 18; O2SAT 98
[2025-03-25] MEDS: ondansetron 2 mg/ML SDV 2 mL 4 MG IVP (17:59)
[2025-03-25] MEDS: morphine 4 mg/mL SDV 1 mL 2 MG IVP (17:59)
[2025-03-25 18:00] VITALS: BP 171/98; PULSE 98; RESP 20; O2SAT 99
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
[2025-03-25 18:19] LABS: Glucose Urine UA Negative (Normal); Nitrate Urine Negative (Negative); Specific Gravity, Urine 1.009 (1.005-1.030)
[2025-03-25 18:24] LABS: Add Urine Microscopic? YES
[2025-03-25 18:25] LABS: PCP Screen Urine Negative (Negative)
[2025-03-25 18:39] VITALS: BP 148/83; PULSE 103; RESP 18; O2SAT 96
--- NOTE | 2025-03-25 18:42 | ECG_ITS ---
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 Measurements Intervals [place] Rate: 97 P: 45 IA: 157 QRS: 7 QRSD: 75 T: 38 QT: 359 QTc: 458 Interpretive Statements SINUS RHYTHM Compared to ECG 03/25/2025 16:47:28 Sinus tachycardia no longer present Electronically Signed On 03-26-2025 18:51:13 SPECIAL NEEDS CHILD CAREGIVER by Rhianna Erwin M.D. [email or web address]
[2025-03-25 19:00] LABS: Alcohol Level < 10 mg/dL (0-10)
--- NOTE | 2025-03-25 19:28 | USR_ITS ---
PROCEDURE INFORMATION: Exam: US Retroperitoneal, Complete, Kidneys and Bladder Exam date and time: 03/25/2025 07:49 PM Age: 65 years old Clinical indication: Other: Elevated bun = 45, elevated creatinine = 3.1. History of HTN, copd, long-term smoker trying to quit since 12/2024, history of cirrhosis, ETOH abuse, methamphetamine abuse. ; Additional info: Shilo CR 0.7 -> 3.1 TECHNIQUE: Imaging protocol: Real-time ultrasound of the retroperitoneum with image documentation. Complete exam focused on the bilateral kidneys and urinary bladder. COMPARISON: CT abdomen pelvis w con* [id number] 06/24/2021 10:15 PM FINDINGS: Right kidney: Normal. No shadowing stones. No hydronephrosis. Left kidney: Normal. No shadowing stones. No hydronephrosis. Urinary bladder: Unremarkable. Both ureteral jets are visualized. Prevoid volume is 180 mL Postvoid volume is 40 mL. US/US renal BI* [id number] IMPRESSION: Unremarkable kidneys and bladder. Small postvoid residual.
[2025-03-25 22:00] VITALS: PULSE 107
--- NOTE | 2025-03-25 22:42 | ECG_ITS ---
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 Measurements Intervals [place] Rate: 92 P: 61 [place]: 169 QRS: 38 QRSD: 75 T: 55 QT: 382 QTc: 474 Interpretive Statements SINUS RHYTHM SEPTAL MYOCARDIAL INFARCTION , OF INDETERMINATE AGE [40+ ms Q WAVE IN V1/V2] Compared to ECG 03/25/2025 20:23:07 Myocardial infarct finding now present Electronically Signed On 03-26-2025 18:51:05 MICA PLATE LAYER by Rhianna Erwin M.D. [email or web address]
[2025-03-25 22:59] VITALS: BP 155/85; PULSE 107; PULSE 96; RESP 17; TEMP 36.7; O2SAT 96
[2025-03-25] MEDS: heparin 5,000 unit/mL INJ 1 mL 5000 UNIT SUBCUT (23:53)
[2025-03-25 23:55] LABS: Troponin 5 6HR 21.62 ng/L (0-10)
[2025-03-25 23:56] LABS: Troponin 5 6HR Delta -1.38 ng/L (0-12)
[2025-03-26 01:43] LABS: Albumin Level 3.6 g/dL (3.5-5.2); Anion Gap 13.2 (5-19); Blood Urea Nitrogen 35 mg/dL (8-23); Calcium 8.4 mg/dL (8.5-10.5); Carbon Dioxide 23 mmol/L (22-29); Chloride 105 mmol/L (98-107); Glucose 122 mg/dL (65-115); Potassium 4.2 mmol/L (3.5-5.1); Sodium 137 mmol/L (136-145)
[2025-03-26 05:00] VITALS: BP 127/72; PULSE 76; RESP 16; TEMP 36.7; O2SAT 95
[2025-03-26 06:00] VITALS: PULSE 79
[2025-03-26 06:08] LABS: Hematocrit 28.5 % (36-47); Hemoglobin 9.40 g/dL (11.27-16.99); Mean Corpuscular HGB Conc 33.0 g/dL (30-55); Mean Corpuscular Hemoglobin 29.7 pg (27-33); Mean Corpuscular Volume 90.2 fl (85-98); Nucleated Red Blood Cells % 0 %; Platelet Count 233 10^3/cmm (157-399); Red Blood Count 3.16 10^6/uL (3.85-5.65); White Blood Count 5.37 10^3/uL (3.29-11.43)
[2025-03-26] MEDS: heparin 5,000 unit/mL INJ 1 mL 5000 UNIT SUBCUT ×2 (06:14→14:16)
[2025-03-26 06:25] LABS: Alanine Aminotransferase 20 U/L (0-33); Albumin Level 3.5 g/dL (3.5-5.2); Alkaline Phosphatase 51 U/L (35-105); Anion Gap 13.6 (5-19); Aspartate Amino Transferase 32 U/L (0-32); Blood Urea Nitrogen 30 mg/dL (8-23); Calcium 8.3 mg/dL (8.5-10.5); Carbon Dioxide 23 mmol/L (22-29); Chloride 105 mmol/L (98-107); Globulin 2.5 g/dL (1.3-4.6); Glucose 96 mg/dL (65-115); Osmolality Calculated 290 mOsm/kg (285-295); Potassium 4.6 mmol/L (3.5-5.1); Sodium 137 mmol/L (136-145); Total Protein 6.0 g/dL (6.6-8.7)
[2025-03-26 07:41] VITALS: BP 118/73; PULSE 75; RESP 16; TEMP 36.2; O2SAT 95
--- NOTE | 2025-03-26 08:07 | PC.PHAR ---
Pt states she takes vitamins A through E, magnesium (not sure on strength), bc powders, sleep aid, and pepto bismol as needed.
[2025-03-26 11:55] VITALS: BP 163/77; PULSE 89; RESP 18; TEMP 36.8; O2SAT 95
[2025-03-26] MEDS: HYDROcodone-acetaminophen 5-325 mg Tablet 1 TAB PO ×2 (14:16→20:56)
[2025-03-26 15:35] VITALS: BP 142/83; PULSE 78; RESP 16; TEMP 36.6; O2SAT 96
[2025-03-26] MEDS: ondansetron 2 mg/ML SDV 2 mL 4 MG IVP (16:06)
--- NOTE | 2025-03-26 18:19 | P.PN_ITS ---
Subjective 2 Subjective: 65 yo F presented with atypical chest pa in reports headache during exam did not have chest pain Vitals/I&O/Wt Last Vital Signs Temp 97.8 F 03/26/25 15:35 Pulse 78 03/26/25 15:35 Resp 16 03/26/25 15:35 BP 142/83 03/26/25 15:35 Pulse Ox 96 03/26/25 15:35 O2 Del Method Room Air 03/26/25 05:00 03/26/25 03/26/25 03/26/25 06:59 14:59 22:59 Intake Total 840 / 1840 1417.5 / 1417.5 240 / 1657.5 Output Total 201 / 201 Balance 639 / 1639 1417.5 / 1417.5 240 / 1657.5 Weight last 48 hrs Weight 64.002 kg Weight 63.503 kg Weight 63.503 kg Physical Exam 2 Narrative: Constitutional: NAD Neurorogic: Awake and alert. Oriented x3. No facial asymmetry, unilateral weakness or speech deficits. Head NC/AT Eyes PERRLA. EOMI. Sclera anicteric. ENT Normal external ears. Hearing intact to normal voice. Normal external nose. No epistaxis. MMM. Respiratory CTAB. No accessory muscle use. On room air. Heart / CV Regular. No murmur. Extremities No edema bilaterally Abdomen / GI Soft. NT. ND. +BS Genitourinary No ray catheter Musculoskeletal Data 03/26/25 05:52 03/26/25 05:52 A&P Assessment and plan 1. Chest pain: 2. Essential (primary) hypertension: Plan: # Atypical Chest pain EKG non-ischemic. Trop 23. CXR w/o acute findings. RFs: history of polysubstance use (tobacco, EtOH, meth), HTN Current pain reproducible on exam. No prior cardiac work-up per patient echo completed CONCLUSIONS Normal left ventricular size and systolic function, EF 78%.. Mild left ventricular hypertrophy. No regional wall motion abnormalities. Grade I/IV diastolic dysfunction (abnormal relaxation filling pattern), normal to mildly elevated filling pressures. Trace mitral valve regurgitation. Thickened aortic valve. Trace tricuspid valve regurgitation. Estimated pulmonary artery peak systolic pressure 32 mmHg. There is no pericardial effusion. There are no intracardiac masses. No similar previous studies are available for comparison will order stress test, may consider to this outpatient pending clnical course # Acute kidney injury # Hyperkalemia Baseline Cr 0.7 resolved IVF monitor labs # Diarrhea 3 day history of diarrhea. # Leukocytosis Mild elevation, suspect stress response no systemic symptoms - Trend wbc, if increasing then will pursue infectious work-up # Chronic hyponatremia Chronic hyponatremia since at least 2020, fairly consistent with her trend # Anemia Baseline HGB 11 g/dL range. Presenting HGB 10.5 g/dL. - stable, continue trending VTE PPx SCDs, heparin PDMP PDMP Reviewed: Not Reviewed Attestations 2 Medical Necessity Statement*: stress test, playground monitor Coding Level of Care Code Acute Code for g Fwd Diagnoses Chest pain R07.9 Essential (primary) hypertension I10
--- NOTE | 2025-03-26 19:47 | USCV_ITS ---
Chintan Christianne Age: 65 Gender: F : 1960 Exam Date: 03/26/2025 10:31 Ordering Phys: Zach Acuña NP Technologist: Vamshi Orellana Exam Location: [facility] [place] Indication: chest pain BP: 118 / 43 HR: 84 Rhythm: Sinus Technical Quality: Adequate MEASUREMENTS (Male / Female) Normal Values 2D ECHO LV Diastolic Diameter PLAX 3.7 cm 4.2 - 5.9 / 3.9 - 5.3 cm IVS Diastolic Thickness 1.0 cm 0.6 - 1.0 / 0.6 - 0.9 cm IVS Systolic Thickness 1.4 cm LVPW Diastolic Thickness 0.9 cm 0.6 - 1.0 / 0.6 - 0.9 cm LVPW Systolic Thickness 1.5 cm LVOT Diameter 2.0 cm LV Ejection Fraction 2D Teich 67.6 % LV Ejection Fraction MOD 4C 70.9 % LV Ejection Fraction MOD 2C 78.9 % LV Ejection Fraction 2C AL 79.2 % LA Diameter 3.5 cm RA Systolic Volume 4C AL 34.7 ml RA Systolic Volume 4C MOD 34.4 ml LA Sys Volume AL 45.9 cm cubed LA Sys Volume Index AL 26.4 cm cubed/m squared Aorta at Sinotubular Diameter 2.3 cm IVC Diameter 1.5 cm M-MODE LA Ao Ratio MM 1.2 AV Cusp Separation MM 1.8 cm DOPPLER AV Peak Velocity 115.0 cm/s LVOT Peak Velocity 85.0 cm/s AV Area Cont Eq vti 2.6 cm squared AV Area Cont Eq pk 2.4 cm squared MV Peak Velocity 96.0 cm/s MV Area PHT 5.0 cm squared Mitral E to A Ratio 0.9 TR Peak Velocity 328.0 cm/s TR Peak Gradient 43.0 mmHg TR Mean Velocity 260.0 cm/s TR Mean Gradient 29.2 mmHg TR Velocity Time Integral 71.0 cm PV Peak Velocity 84.0 cm/s RV Ejection Time 0.3 s FINDINGS Left Ventricle Normal left ventricular size and systolic function, EF 78%.. Mild left ventricular hypertrophy. No regional wall motion abnormalities. Grade I/IV diastolic dysfunction (abnormal relaxation filling pattern), normal to mildly elevated filling pressures. Right Ventricle Normal right ventricular size and systolic function. Right Atrium Normal right atrial size. Left Atrium Normal left atrial size. IA Septum Normal appearance of the interatrial septum. Mitral Valve Trace mitral valve regurgitation. Aortic Valve Thickened aortic valve. Tricuspid Valve Trace tricuspid valve regurgitation. Estimated pulmonary artery peak systolic pressure 32 mmHg Pulmonic Valve No gross abnormalities noted Pericardium No pericardial effusion. Aorta Normal aortic annulus size. IVC Normal inferior vena cava. CONCLUSIONS Normal left ventricular size and systolic function, EF 78%.. Mild left ventricular hypertrophy. No regional wall motion abnormalities. Grade I/IV diastolic dysfunction (abnormal relaxation filling pattern), normal to mildly elevated filling pressures. Trace mitral valve regurgitation. Thickened aortic valve. Trace tricuspid valve regurgitation. Estimated pulmonary artery peak systolic pressure 32 mmHg. There is no pericardial effusion. There are no intracardiac masses. No similar previous studies are available for comparison Dr Rhianna Erwin MD FAC (Electronically Signed) Final Date: 26 March 2025 12:09 S
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
[2025-03-26 21:00] VITALS: BP 166/99; PULSE 85; RESP 16; TEMP 36.7; O2SAT 97
[2025-03-27] VITALS: BP 128/72; PULSE 83; RESP 15; TEMP 37.1; O2SAT 96
[2025-03-27] MEDS: heparin 5,000 unit/mL INJ 1 mL 5000 UNIT SUBCUT ×4 (00:33→22:55)
[2025-03-27 04:00] VITALS: BP 144/88; PULSE 71; RESP 16; TEMP 36.6; O2SAT 93
--- NOTE | 2025-03-27 06:00 | ECG_ITS ---
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 The perfusion scan will be documented separately. DATA: Baseline heart rate was 70 beats per minute. Baseline blood pressure was 172/103 millimeters of mercury. Target heart rate was 154. Maximum heart rate achieved was 108. which was 70% of the predicted target heart rate. Maximum blood pressure was 172/103 millimeters of mercury. The reason for ending the test was completion of the protocol. The patient did not experience any symptoms. ELECTROCARDIOGRAM: BASELINE: Sinus rhythm. Normal axis. Otherwise, no ST-T changes suggestive of ischemia noted. No arrhythmia noted. EXERCISE: After Lexiscan injection, no ST-T changes suggestive of ischemic noted. No arrhythmia noted. CONCLUSION: Please note due to baseline abnormality of the EKG specificity and sensitivity of the EKG portion of LexiScan MIBI stress test will be low 1. EKG not suggestive of ischemia 2. Lexiscan injection unremarkable. 3. Perfusion scan will be documented separately. Electronically Signed On 03-29-2025 16:32:19 GAMING ASSOCIATE by KELLI PARISH [id number]
[2025-03-27] MEDS: HYDROcodone-acetaminophen 5-325 mg Tablet 1 TAB PO ×3 (06:26→20:27)
[2025-03-27 08:00] VITALS: BP 151/84; PULSE 78; RESP 17; TEMP 36.6; O2SAT 97
[2025-03-27 10:17] LABS: Hematocrit 30.8 % (36-47); Hemoglobin 10.20 g/dL (11.27-16.99); Mean Corpuscular HGB Conc 33.1 g/dL (30-55); Mean Corpuscular Hemoglobin 29.7 pg (27-33); Mean Corpuscular Volume 89.8 fl (85-98); Nucleated Red Blood Cells % 0 %; Platelet Count 235 10^3/cmm (157-399); Red Blood Count 3.43 10^6/uL (3.85-5.65); White Blood Count 5.20 10^3/uL (3.29-11.43)
[2025-03-27 10:42] LABS: Alanine Aminotransferase 22 U/L (0-33); Albumin Level 3.7 g/dL (3.5-5.2); Alkaline Phosphatase 54 U/L (35-105); Anion Gap 13.1 (5-19); Aspartate Amino Transferase 33 U/L (0-32); Blood Urea Nitrogen 11 mg/dL (8-23); Calcium 8.9 mg/dL (8.5-10.5); Carbon Dioxide 24 mmol/L (22-29); Chloride 101 mmol/L (98-107); Globulin 3.1 g/dL (1.3-4.6); Glucose 116 mg/dL (65-115); Osmolality Calculated 278 mOsm/kg (285-295); Potassium 4.1 mmol/L (3.5-5.1); Sodium 134 mmol/L (136-145); Total Protein 6.8 g/dL (6.6-8.7)
[2025-03-27 11:43] VITALS: BP 167/83; PULSE 82; RESP 16; TEMP 36.4; O2SAT 98
[2025-03-27] MEDS: ondansetron 2 mg/ML SDV 2 mL 4 MG IVP (13:26)
--- NOTE | 2025-03-27 14:54 | P.PN_ITS ---
Subjective 2 Subjective: still has headache feels anxious denies chest pain Vitals/I&O/Wt Last Vital Signs Temp 97.6 F 03/27/25 11:43 Pulse 82 03/27/25 11:43 Resp 16 03/27/25 11:43 BP 167/83 03/27/25 11:43 Pulse Ox 98 03/27/25 11:43 O2 Del Method Room Air 03/27/25 11:43 03/26/25 03/27/25 03/27/25 22:59 06:59 14:59 Intake Total 240 / 1657.5 1000 / 2657.5 1260 / 1260 Output Total 200 / 200 Balance 240 / 1657.5 800 / 2457.5 1260 / 1260 Weight last 48 hrs Weight 63.957 kg Weight 64.002 kg Weight 63.503 kg Weight 63.503 kg Physical Exam 2 Narrative: Constitutional: NAD Neurorogic: Awake and alert. Oriented x3. No facial asymmetry, unilateral weakness or speech deficits. Head NC/AT Eyes PERRLA. EOMI. Sclera anicteric. ENT Normal external ears. Hearing intact to normal voice. Normal external nose. No epistaxis. MMM. Respiratory CTAB. No accessory muscle use. On room air. Heart / CV Regular. No murmur. Extremities No edema bilaterally Abdomen / GI Soft. NT. ND. +BS Genitourinary No ray catheter Musculoskeletal Data 03/27/25 10:05 03/27/25 10:05 A&P Assessment and plan 1. Chest pain: 2. Essential (primary) hypertension: Plan: # Atypical Chest pain EKG non-ischemic. Trop 23. CXR w/o acute findings. RFs: history of polysubstance use (tobacco, EtOH, meth), HTN Current pain reproducible on exam. No prior cardiac work-up per patient echo completed CONCLUSIONS Normal left ventricular size and systolic function, EF 78%.. Mild left ventricular hypertrophy. No regional wall motion abnormalities. Grade I/IV diastolic dysfunction (abnormal relaxation filling pattern), normal to mildly elevated filling pressures. Trace mitral valve regurgitation. Thickened aortic valve. Trace tricuspid valve regurgitation. Estimated pulmonary artery peak systolic pressure 32 mmHg. There is no pericardial effusion. There are no intracardiac masses. No similar previous studies are available for comparison will order stress test, may consider to this outpatient pending clnical course plan for saturday she may be discharged before then Headache --added one dose ibu --one dose sumatriptan # Acute kidney injury # Hyperkalemia Baseline Cr 0.7 resolved IVF monitor labs #anxiety --prn benzo -- consult # Diarrhea 3 day history of diarrhea. # Leukocytosis Mild elevation, suspect stress response no systemic symptoms - Trend wbc, if increasing then will pursue infectious work-up # Chronic hyponatremia Chronic hyponatremia since at least 2020, fairly consistent with her trend # Anemia Baseline HGB 11 g/dL range. Presenting HGB 10.5 g/dL. - stable, continue trending VTE PPx SCDs, heparin PDMP PDMP Reviewed: Not Reviewed Attestations 2 Medical Necessity Statement*: tele monitor Coding Level of Care Code Acute Code for g Fwd Diagnoses Chest pain R07.9 Essential (primary) hypertension I10
[2025-03-27 16:00] VITALS: BP 145/98; PULSE 79; RESP 16; TEMP 36.4; O2SAT 96
[2025-03-27 20:00] VITALS: BP 169/112; PULSE 107; RESP 17; TEMP 37; O2SAT 99
[2025-03-28] VITALS (8 sets, daily range): BP systolic 114–152; BP diastolic 68–91; PULSE 64–93; RESP 15–20; TEMP 36.4–37.1; O2SAT 92–98
[2025-03-28] MEDS: HYDROcodone-acetaminophen 5-325 mg Tablet 1 TAB PO ×3 (01:57→20:27)
[2025-03-28] MEDS: ondansetron 2 mg/ML SDV 2 mL 4 MG IVP (02:49)
[2025-03-28] MEDS: heparin 5,000 unit/mL INJ 1 mL 5000 UNIT SUBCUT ×3 (06:12→23:28)
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
[2025-03-29] VITALS (9 sets, daily range): BP systolic 100–176; BP diastolic 56–94; PULSE 68–96; RESP 16–22; TEMP 36.4–36.9; O2SAT 95–98; BMI 20.9
[2025-03-29] MEDS: polyethylene glycol 3350 Pkt 17 gm PO (04:19)
[2025-03-29] MEDS: HYDROcodone-acetaminophen 5-325 mg Tablet 1 TAB PO ×3 (04:23→19:23)
[2025-03-29] MEDS: heparin 5,000 unit/mL INJ 1 mL 5000 UNIT SUBCUT (05:57)
--- NOTE | 2025-03-29 06:41 | PC.NURSE ---
Patient to [facility] at 0641. Transported by wheelchair.
[2025-03-29] MEDS: ondansetron 2 mg/ML SDV 2 mL 4 MG IVP (07:23)
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
--- NOTE | 2025-03-29 12:41 | NMCV_ITS ---
NM stacey perf SPECT r/s* [id number] Christianne Woodson Age: 65 Gender: F : 1960 Exam Date: 03/29/2025 06:35 Ordering Phys: Amie Marks MD Technologist: SARAVANAN Gross Exam Location: [facility] Indications: cp STRESS TEST Please see separate stress test report in [facility] for full findings IMAGE PROTOCOL Rest/Stress 1 Lexiscan Day Radiopharmaceutical Dose (mCi) Administration Site Administered by Rest: Tc-99m 10.5 IV Shadia Guzman, PEDIATRICS TEACHER Sestamibi Stress:Tc-99m 32.5 IV Shadia Dietzgle, PEDIATRICS TEACHER Sestamibi Rest: 29-Mar-2025 60 Discovery 630 Stress: 29-Mar-2025 30 Discovery 630 0.4mg Lexiscan. Supine position only as patient was unable to lay prone. SPECT RESULTS Technical Quality: Good Raw Data Analysis: Normal Image Corrections: No attenuation or motion correction applied Summed Stress Score: 0 Summed Rest Score: 0 Summed Difference Score: 0 PERFUSION FINDINGS SPECT images demonstrate homogeneous tracer distribution throughout the myocardium. FUNCTIONAL RESULTS (calculated via Gated SPECT) Stress Image LV EF (%): 76 Stress EDV (mL):67 TID: 1.09 Stress ESV (mL):16 Rest Image LV EF (%): 70 FUNCTIONAL FINDINGS: There is normal left ventricular systolic function. IMPRESSIONS Myocardial perfusion imaging is normal. Sonja Erwin MD (Electronically Signed) Final Date: 29 March 2025 16:30 S
[2025-03-29 18:52] LABS: Anion Gap 15.9 (5-19); Blood Urea Nitrogen 9 mg/dL (8-23); Calcium 8.7 mg/dL (8.5-10.5); Carbon Dioxide 21 mmol/L (22-29); Chloride 104 mmol/L (98-107); Glucose 128 mg/dL (65-115); Osmolality Calculated 284 mOsm/kg (285-295); Potassium 3.9 mmol/L (3.5-5.1); Sodium 137 mmol/L (136-145)
--- NOTE | 2025-03-29 19:38 | PC.NURSE ---
This patient discharge was reviewed with her by Charline NAPIER. This nurse just removed patient from computer
== END 2025-03-29 19:39 | disposition home or self-care (01) ==
LOC: ER 17:33 → ER IP 18:09 → MEDSURG 19:00 → ER IP 03-26 06:56
PROVIDERS: Nurse Practitioner Gerontology; Admitting Provider Internal Medicine; Emergency Provider Family Medicine; Visit Provider Internal Medicine
DX: F43.9 Reaction to severe stress, unspecified (principal); F43.10 Post-traumatic stress disorder, unspecified; B19.20 Unspecified viral hepatitis C without hepatic coma; F32.A Depression, unspecified; Z63.4 Disappearance and death of family member; F41.9 Anxiety disorder, unspecified; I48.91 Unspecified atrial fibrillation; I34.0 Nonrheumatic mitral (valve) insufficiency; I07.1 Rheumatic tricuspid insufficiency; I10 Essential (primary) hypertension; J44.9 Chronic obstructive pulmonary disease, unspecified; Z87.891 Personal history of nicotine dependence; F15.11 Other stimulant abuse, in remission; N17.9 Acute kidney failure, unspecified
CPT/HCPCS: 36415; 36416; 71045; 76770; 78452; 80048; 80053; 80069; 80306; 80307; 81001; 82550; 82962; 84484; 85025; 93005; 93017; 93306; 96372; 96374; 96375; 99285; A9500; G0378; J1644; J1885; J2060; J2270; J2405; J2785; J7030; J9999

== ENCOUNTER → 2025-04-02 10:44 | Outpatient (BNVA) | payer MEDICARE, SELFPAY | PROVIDERS: PCP Nurse Practitioner Family; Visit Provider Nurse Practitioner Family | DX: I10 Essential (primary) hypertension (principal); R00.0 Tachycardia, unspecified; F41.9 Anxiety disorder, unspecified; R07.9 Chest pain, unspecified | CPT/HCPCS: 80053; 83550; 84443; 85025 ==